=== PATIENT | female | born 1935 | race Caucasian/White ===

== ENCOUNTER 2018-06-20 17:29 | Inpatient (IN) | payer OTHER ==
[~2018-06-20] VITALS: Ht 157.5 cm; Wt 66.8 kg
[~2018-06-20 17:29] MED LIST: ASCO500C9 PO; ASPI-630 PO; CHOL100013 PO; GLUC1TAB32 PO; L.AC1CAP6 PO; LOSA25TA54 PO; MAGN100T6 PO; MEDI7.7O PO; METO-239 PO; MULT1TAB52 PO; OMEG10003 PO; PNV PO; SELE5CAP3 PO; UBID10CA5 PO; [UNRECOGNIZED DRUG - REMARK] PO
[2018-06-20] MEDS ORDERED: IV NORMAL SALINE 1000ML BAG 1,000 ML IV ONE ×3 (17:45→21:00)
[2018-06-20] MEDS ORDERED: ONDANSETRON PF 4 MG/2 ML VIAL. IV ONE (17:45)
[2018-06-20] MEDS ORDERED: FAMOTIDINE 20 MG/2 ML VIAL IVP ONE (17:45)
--- NOTE | 2018-06-20 17:48 | PHYS DOC ---
Past Medical History Past Medical History: Hypertension Additional Past Medical Histor: REPORTS THAT SHE NO LONGER TAKES MEDICATIONS FOR HYPERTENSION. Past Surgical History: Appendectomy, Hysterectomy Alcohol Use: None Drug Use: None Adult General HPI HPI Patient is a 82 year old female with history of hypertension, dementia, who presents today from a longterm, chief complaint of nausea, vomiting, symptoms began this afternoon. Patient denies any abdominal pain. Denies any diarrhea. Poor historian due to dementia. EMS states when they went to get patient family member was concerned her blood pressure was high, blood pressure was around 180s over 90s when they went to pick patient up. Patient denies any symptoms. She appears to have vomited in route to the ED. Review of Systems Review of Systems Constitutional: Denies fever or chills [] Eyes: Denies change in visual acuity, redness, or eye pain [] HENT: Denies nasal congestion or sore throat [] Respiratory: Denies cough or shortness of breath [] Cardiovascular: No additional information not addressed in HPI [] GI: Reports nausea, vomiting. Denies abdominal pain, bloody stools or diarrhea [] : Denies dysuria or hematuria [] Musculoskeletal: Denies back pain or joint pain [] Integument: Denies rash or skin lesions [] Neurologic: Denies headache, focal weakness or sensory changes [] All other systems were reviewed and found to be within normal limits, except as documented in this note. Current Medications Current Medications Current Medications Medications (Trade) Dose Ordered Sig/Drea Start Time Stop Time Status Last Admin Dose Admin Famotidine (Pepcid Vial) 20 mg 1X ONCE 06/20/18 17:45 06/20/18 17:46 DC 06/20/18 18:06 20 MG Info (CONTRAST GIVEN -- Rx MONITORING) 1 each PRN DAILY PRN 06/20/18 18:00 06/22/18 17:59 Iohexol (Omnipaque 300 Mg/ml) 75 ml 1X ONCE 06/20/18 18:00 06/20/18 18:01 DC 06/20/18 19:00 75 ML Ondansetron HCl (Zofran) 4 mg 1X ONCE 06/20/18 17:45 06/20/18 17:46 DC 06/20/18 18:06 4 MG Sodium Chloride 1,000 ml @ 1,000 mls/hr 1X ONCE 06/20/18 17:45 06/20/18 18:44 DC 06/20/18 18:05 1,000 MLS/HR Allergies Allergies Allergies Coded Allergies Type Severity Reaction Last Updated Verified Penicillins Allergy Intermediate RASH 02/28/17 Yes Physical Exam Physical Exam Constitutional: Well developed, well nourished, no acute distress, non-toxic appearance. [] HENT: Normocephalic, atraumatic, bilateral external ears normal, oropharynx mo ist, no oral exudates, nose normal. [] Eyes: PERRLA, EOMI, conjunctiva normal, no discharge. [] Neck: Normal range of motion, no tenderness, supple, no stridor. [] Cardiovascular:Heart rate regular rhythm, no murmur [] Lungs & Thorax: Bilateral breath sounds clear to auscultation [] Abdomen: Bowel sounds normal, soft, no tenderness, no masses, no pulsatile masses. [] Skin: Warm, dry, no erythema, no rash. [] Back: No tenderness, no CVA tenderness. [] Extremities: No tenderness, no cyanosis, no clubbing, ROM intact, no edema. [] Neurologic: Alert and oriented X 3, normal motor function, normal sensory function, no focal deficits noted. Cranial nerves II-XII intact. Psychologic: Affect normal, judgement normal, mood normal. [] Current Patient Data Vital Signs Vital Signs Date Time Temp Pulse Resp B/P (MAP) Pulse Ox O2 Delivery O2 Flow Rate FiO2 06/20/18 17:29 98.4 104 20 207/95 (132) 94 Room Air 98.4 Lab Values Laboratory Tests Test 06/20/18 17:47 06/20/18 18:15 White Blood Count 15.6 x10^3/uL (4.0-11.0) H Red Blood Count 4.81 x10^6/uL (3.50-5.40) Hemoglobin 15.1 g/dL (12.0-15.5) Hematocrit 45.9 % (36.0-47.0) Mean Corpuscular Volume 96 fL (79-100) Mean Corpuscular Hemoglobin 31 pg (25-35) Mean Corpuscular Hemoglobin Concent 33 g/dL (31-37) Red Cell Distribution Width 13.0 % (11.5-14.5) Platelet Count 258 x10^3/uL (140-400) Neutrophils (%) (Auto) 82 % (31-73) H Lymphocytes (%) (Auto) 10 % (24-48) L Monocytes (%) (Auto) 7 % (0-9) Eosinophils (%) (Auto) 1 % (0-3) Basophils (%) (Auto) 0 % (0-3) Neutrophils # (Auto) 12.8 x10^3uL (1.8-7.7) H Lymphocytes # (Auto) 1.5 x10^3/uL (1.0-4.8) Monocytes # (Auto) 1.1 x10^3/uL (0.0-1.1) Eosinophils # (Auto) 0.1 x10^3/uL (0.0-0.7) Basophils # (Auto) 0.0 x10^3/uL (0.0-0.2) Segmented Neutrophils % 62 % (35-66) Band Neutrophils % 15 % (0-9) H Lymphocytes % 11 % (24-48) L Atypical Lymphocytes % (Manual) 2 % (0-0) H Monocytes % 9 % (0-10) Eosinophils % 1 % (0-5) Platelet Estimate Adequate (ADEQUATE) Sodium Level 139 mmol/L (136-145) Potassium Level 3.7 mmol/L (3.5-5.1) Chloride Level 104 mmol/L (98-107) Carbon Dioxide Level 24 mmol/L (21-32) Anion Gap 11 (6-14) Blood Urea Nitrogen 22 mg/dL (7-20) H Creatinine 0.9 mg/dL (0.6-1.0) Estimated GFR (Cockcroft-Gault) 60.2 BUN/Creatinine Ratio 24 (6-20) H Glucose Level 129 mg/dL (70-99) H Calcium Level 10.1 mg/dL (8.5-10.1) Magnesium Level 2.0 mg/dL (1.8-2.4) Total Bilirubin 0.2 mg/dL (0.2-1.0) Aspartate Amino Transferase (AST) 19 U/L (15-37) Alanine Aminotransferase (ALT) 15 U/L (14-59) Alkaline Phosphatase 96 U/L (46-116) Troponin I Quantitative < 0.017 ng/mL (0.000-0.055) DJ-Ceu-L-Type Natriuretic Peptide 1174 pg/mL (0-449) H Total Protein 8.3 g/dL (6.4-8.2) H Albumin 4.2 g/dL (3.4-5.0) Albumin/Globulin Ratio 1.0 (1.0-1.7) Lipase 457 U/L (73-393) H Urine Collection Type U cath Urine Color Yellow Urine Clarity Clear Urine pH 5.5 Urine Specific [place] 1.025 Urine Protein 30 mg/dL (NEG-TRACE) Urine Glucose (UA) Negative mg/dL (NEG) Urine Ketones (Stick) Negative mg/dL (NEG) Urine Blood Negative (NEG) Urine Nitrite Positive (NEG) Urine Bilirubin Negative (NEG) Urine Urobilinogen Dipstick 0.2 mg/dL (0.2 mg/dL) Urine Leukocyte Esterase Small (NEG) Urine RBC 0 /HPF (0-2) Urine WBC 20-40 /HPF (0-4) Urine Squamous Epithelial Cells Few /LPF Urine Bacteria Many /HPF (0-FEW) Urine Hyaline Casts Moderate /HPF Urine Mucus Marked /LPF Laboratory Tests 06/20/18 17:47 Laboratory Tests 06/20/18 17:47 EKG EKG EKG interpreted by Dr. Young sinus tachycardia HR 101 no STEMI[] Radiology/Procedures Radiology/Procedures [] Course & Med Decision Making Course & Med Decision Making Pertinent Labs and Imaging studies reviewed. (See chart for details) This is a 82-year-old female patient with history of dementia presenting with nausea and vomiting, symptoms began today. She was also noted to be hypertensive when EMS went to pick her from longterm blood pressures were in the 180s over 90s. Patient denies any symptoms. EKG-shows tachycardia with HR of 101 CBC with a WBC of 15.6 and a left shift, CMP with glucose of 129, anion gap is normal, BUN is 22. Lipase 457. Patient has no abdominal pain though she has dementia and had to elicit concerns regarding abdominal pain Urine noted for UTI Awaiting CT of the abdomen and pelvic Patient vomited in the Ed several times. Nausea medicine and IV fluids were continued. Consulted with Dr. Hebert who accepted patient for admission Gi consult placed Started on Rocephin for UTI Dragon Disclaimer Dragon Disclaimer This electronic medical record was generated, in whole or in part, using a voice recognition dictation system. Departure Departure Impression: Primary Impression: Acute pancreatitis Additional Impressions: Hypertension UTI (urinary tract infection) Intractable nausea and vomiting Disposition: ADMITTED INPATIENT Condition: STABLE Referrals: UNKNOWN PCP NAME (PCP) Problem Qualifiers Primary Impression: Acute pancreatitis Pancreatitis type: unspecified pancreatitis type Acute pancreatitis complication: unspecified Qualified Codes: K85.90 - Acute pancreatitis without necrosis or infection, unspecified Additional Impressions: Hypertension Hypertension type: unspecified Qualified Codes: I10 - Essential (primary) hypertension UTI (urinary tract infection) Urinary tract infection type: site unspecified Hematuria presence: without hematuria Qualified Codes: N39.0 - Urinary tract infection, site not specified Intractable nausea and vomiting Vomiting type: unspecified Qualified Codes: R11.2 - Nausea with vomiting, unspecified JANNETTE CONTRERAS [employer] INSTRUCTOR Jun 20, 2018 17:48
[2018-06-20 17:54] LABS: BASO % 0 % (0-3); EOS # 0.1 x10^3/uL (0.0-0.7); EOS % 1 % (0-3); HEMATOCRIT 45.9 % (36.0-47.0); HEMOGLOBIN 15.1 g/dL (12.0-15.5); LYMPH # 1.5 x10^3/uL (1.0-4.8); LYMPH % 10 % (24-48); MEAN CORPUSCULAR HEMOGLOBIN 31 pg (25-35); MEAN CORPUSCULAR HGB CONC 33 g/dL (31-37); MEAN CORPUSCULAR VOLUME 96 fL (79-100); MONO # 1.1 x10^3/uL (0.0-1.1); MONO % 7 % (0-9); NEUT # 12.8 x10^3uL (1.8-7.7); NEUT % 82 % (31-73); PLATELET COUNT 258 x10^3/uL (140-400); RED BLOOD COUNT 4.81 x10^6/uL (3.50-5.40); WHITE BLOOD COUNT 15.6 x10^3/uL (4.0-11.0)
[2018-06-20] MEDS ORDERED: CONTRAST GIVEN. MC PRN (18:00)
[2018-06-20] MEDS ORDERED: IOHEXOL 300 MG/ML 100ML VIAL. IV ONE (18:00)
[2018-06-20 18:03] LABS: CALCIUM 10.1 mg/dL (8.5-10.1); CREATININE 0.9 mg/dL (0.6-1.0); GFR 60.2; POTASSIUM 3.7 mmol/L (3.5-5.1)
[2018-06-20 18:09] LABS: ALBUMIN 4.2 g/dL (3.4-5.0); TOTAL BILIRUBIN 0.2 mg/dL (0.2-1.0); TOTAL PROTEIN 8.3 g/dL (6.4-8.2)
[2018-06-20 18:25] LABS: BILIRUBIN,URINE NEGATIVE (NEG); CLARITY,URINE CLEAR; COLOR,URINE YELLOW; NITRITE,URINE POSITIVE (NEG); PH,URINE 5.5; PROTEIN,URINE 30 mg/dL (NEG-TRACE); UROBILINOGEN,URINE 0.2 mg/dL (0.2 mg/dL)
[2018-06-20 18:32] LABS: BACTERIA,URINE MANY /HPF (0-FEW); HYALINE CASTS, URINE MODERATE /HPF; RBC,URINE 0 /HPF (0-2); SQUAMOUS EPITHELIAL CELL,UR FEW /LPF; WBC,URINE 20-40 /HPF (0-4)
[2018-06-20 18:42] LABS: % ATYL 2 % (0-0); % BANDS 15 % (0-9); % EOS 1 % (0-5); % LYMPHS 11 % (24-48); % MONOS 9 % (0-10); % SEGS 62 % (35-66); PLT ESTIMATE ADEQUATE (ADEQUATE)
[2018-06-20] MEDS ORDERED: ONDANSETRON PF 4 MG/2 ML VIAL. IV PRN (19:30)
[2018-06-20] MEDS ORDERED: fentaNYL PF VIAL 100 MCG/2 ML VIAL IV PRN (19:30)
--- NOTE | 2018-06-20 19:35 | RAD ---
CT SCAN OF THE ABDOMEN AND PELVIS WITH IV CONTRAST. History: Nausea and vomiting Comparison:None. Procedure: Contiguous axial images of the abdomen and pelvis were performed after the administration of 70 cc of Omni 300 IV contrast and without oral contrast. CT Abdomen with contrast: Findings: There is beam Spicer artifact from prior fusion laminectomy at L4-L5. There is a small hiatal hernia. The colon is partially collapsed. There is multiple mildly prominent fluid-filled loops of small bowel. There is no transition zone. Liver: There is a 7 mm hypoattenuating lesion in the right lobe of the liver is too small to characterize. There is a 1.7 cm x 3.1 cm hypoattenuating lesion in the liver which has intermediate density this 2 additional smaller lesions which are also too small to characterize. Spleen: Unremarkable Pancreas: The pancreatic duct is mildly dilated. This is especially seen in the pancreatic head. Adrenal Glands: Unremarkable Kidneys: Small cyst on the right There is no mass or lymphadenopathy. There is no free air. There is no free fluid. Impression: No acute findings. End Impression CT Pelvis with Contrast: Findings: The urinary bladder appears normal. There is no free fluid. There is no lymphadenopathy. The appendix is not seen. There is moderate sigmoid diverticulosis without surrounding inflammation. Impression: 1. Numerous hypoattenuating lesions in the liver the majority of which are too small to characterize. 2. Dilated pancreatic duct. This is of uncertain chronicity. Recommend follow-up ultrasound of the liver and pancreas. PQRS Compliance Statement: One or more of the following individualized dose reduction techniques were utilized for this examination: 1. Automated exposure control 2. Adjustment of the mA and/or kV according to patient size 3. Use of iterative reconstruction technique Electronically signed by: Faisal Lance III, MD (06/20/2018 7:32 PM) [facility]
[2018-06-20] MEDS ORDERED: cefTRIAXone IV Push 1 GM VIAL. IVP ONE (20:00)
[2018-06-20 20:30] VITALS: BP 152/79
[2018-06-20] MEDS ORDERED: UBIDECARENONE 10 MG PO SCH (21:00)
[2018-06-20] MEDS ORDERED: [UNRECOGNIZED DRUG - OTHER] PO SCH (21:00)
[2018-06-20] MEDS ORDERED: SELEGILINE HCL 5 MG PO SCH (21:00)
[2018-06-20] MEDS ORDERED: METOPROLOL SUCC 24HR ER 25 MG TAB.ER.24H. PO SCH (21:30)
--- NOTE | 2018-06-20 21:51 | PDOC1 ---
History and Physical Date of Admission Date of Admission DATE: 06/20/18 TIME: 21:47 Identification/Chief Complaint Chief Complaint nausea and vomiting Source Source: Caregiver, Chart review History of Present Illness History of Present Illness Ms. Liu, is a 82 year old female admit with nausea, vomiting, symptoms began this afternoon. Patient denies any abdominal pain. Denies any diarrhea. Poor historian due to dementia. EMS states when they went to get patient family member was concerned her blood pressure was high, blood pressure was around 180s over 90s when they went to pick patient up. Patient denies any symptoms. She appears to have vomited in route to the ED. Past Medical History Past Medical History history of hypertension, dementia, - had been on hospice before in a retirement, Cardiovascular: HTN Past Surgical History Past Surgical History: Appendectomy, Hysterectomy Family History Family History: Other Social History Smoke: No ALCOHOL: none Drugs: None Current Problem List Problem List Problems Medical Problems: (1) Acute pancreatitis Status: Acute (2) Hypertension Status: Acute Current Medications Current Medications Current Medications Famotidine (Pepcid Vial) 20 mg 1X ONCE IVP Last administered on 06/20/18at 18:06; Start 06/20/18 at 17:45; Stop 06/20/18 at 17:46; Status DC Ondansetron HCl (Zofran) 4 mg 1X ONCE IV Last administered on 06/20/18at 18:06; Start 06/20/18 at 17:45; Stop 06/20/18 at 17:46; Status DC Sodium Chloride 1,000 ml @ 1,000 mls/hr 1X ONCE IV Last administered on 06/20/18at 18:05; Start 06/20/18 at 17:45; Stop 06/20/18 at 18:44; Status DC Iohexol (Omnipaque 300 Mg/ml) 75 ml 1X ONCE IV Last administered on 06/20/18at 19:00; Start 06/20/18 at 18:00; Stop 06/20/18 at 18:01; Status DC Info (CONTRAST GIVEN -- Rx MONITORING) 1 each PRN DAILY PRN MC SEE COMMENTS; Start 06/20/18 at 18:00; Stop 06/22/18 at 17:59 Ondansetron HCl (Zofran) 4 mg PRN Q8HRS PRN IV NAUSEA/VOMITING; Start 06/20/18 at 19:30; Stop 06/21/18 at 19:29 Fentanyl Citrate (Fentanyl 2ml Vial) 50 mcg PRN Q1HR PRN IV PAIN; Start 06/20/18 at 19:30; Stop 06/21/18 at 19:29 Sodium Chloride 1,000 ml @ 125 mls/hr 1X ONCE IV Last administered on 06/20/18at 19:40; Start 06/20/18 at 19:30; Stop 06/21/18 at 03:29 Ceftriaxone Sodium (Rocephin) 1 gm 1X ONCE IVP Last administered on 06/20/18at 19:38; Start 06/20/18 at 20:00; Stop 06/20/18 at 20:01; Status DC Ceftriaxone Sodium (Rocephin) 1 gm Q24H IVP ; Start 06/21/18 at 20:00 Sodium Chloride 1,000 ml @ 100 mls/hr 1X ONCE IV ; Start 06/20/18 at 21:00; Stop 06/21/18 at 06:59 Aspirin (Children'S Aspirin) 81 mg DAILY PO ; Start 06/21/18 at 09:00 Losartan Potassium (Cozaar) 25 mg DAILY PO ; Start 06/21/18 at 09:00 Metoprolol Succinate (Toprol Xl) 25 mg DAILYWSUP PO ; Start 06/20/18 at 21:30 Ascorbic Acid (Vitamin C) 500 mg DAILY PO ; Start 06/21/18 at 09:00 Non-Formulary Medication (Selegiline Hcl ) 5 mg BID PO ; Start 06/20/18 at 21:00; Status UNV Non-Formulary Medication (Ubidecarenone (Co Q-10)) 10 mg BID PO ; Start 06/20/18 at 21:00; Status UNV Non-Formulary Medication ([misce] ) 400 mg HS PO ; Start 06/20/18 at 21:00; Status UNV Active Scripts Active Reported Vitamin D (Cholecalciferol (Vitamin D3)) 1,000 Unit Capsule 5,000 Unit PO DAILY Vitamin C (Ascorbic Acid) 500 Mg Capsule 500 Mg PO DAILY Super [place]-3 ([place]-3 Fatty Acids) 1,000 Mg Capsule 2,000 Mg PO DAILYWSUP Selegiline Hcl 5 Mg Capsule 5 Mg PO BID Probiotic (L.acidoph & Paracasei,B.lactis) 1 Each Capsule 1 Each PO DAILY Multivitamins (Multivitamin) 1 Each Tablet 1 Tab PO DAILY Metoprolol Succinate ( Xl ) (Metoprolol Succinate) 25 Mg Tab.er.24h 1 Tab PO DAILYWSUP Levomefolate Dha Capsule (Pnv#79/Iron/Fa/Lmfolate Ca/Dha) 1 Each Capsule 1 Each PO DAILY Losartan Potassium (Losartan Potassium) 25 Mg Tablet 100 Mg PO DAILY Aspirin 81 Mg Tab.chew 1 Tab PO DAILY Allergies Allergies: Coded Allergies: Penicillins (Verified Allergy, Intermediate, RASH, 02/28/17) ROS Review of System unable, dementia, had looked well before today per family Physical Exam General: Alert, Cooperative, No acute distress HEENT: Atraumatic, PERRLA, Mucous membr. moist/pink Lungs: Normal air movement Heart: no murmurs Abdomen: Normal bowel sounds, Soft Extremities: No edema, Normal pulses Neuro: Normal tone, Sensation intact Psych/Mental Status: Other (withdrawn, not oriented, poor recall) Vitals Vitals Vital Signs Date Time Temp Pulse Resp B/P (MAP) Pulse Ox O2 Delivery O2 Flow Rate FiO2 06/20/18 20:30 98.4 109 21 152/79 (103) 90 Room Air 98.4 Labs Labs Laboratory Tests Test 06/20/18 17:47 06/20/18 18:15 White Blood Count 15.6 x10^3/uL (4.0-11.0) Red Blood Count 4.81 x10^6/uL (3.50-5.40) Hemoglobin 15.1 g/dL (12.0-15.5) Hematocrit 45.9 % (36.0-47.0) Mean Corpuscular Volume 96 fL (79-100) Mean Corpuscular Hemoglobin 31 pg (25-35) Mean Corpuscular Hemoglobin Concent 33 g/dL (31-37) Red Cell Distribution Width 13.0 % (11.5-14.5) Platelet Count 258 x10^3/uL (140-400) Neutrophils (%) (Auto) 82 % (31-73) Lymphocytes (%) (Auto) 10 % (24-48) Monocytes (%) (Auto) 7 % (0-9) Eosinophils (%) (Auto) 1 % (0-3) Basophils (%) (Auto) 0 % (0-3) Neutrophils # (Auto) 12.8 x10^3uL (1.8-7.7) Lymphocytes # (Auto) 1.5 x10^3/uL (1.0-4.8) Monocytes # (Auto) 1.1 x10^3/uL (0.0-1.1) Eosinophils # (Auto) 0.1 x10^3/uL (0.0-0.7) Basophils # (Auto) 0.0 x10^3/uL (0.0-0.2) Segmented Neutrophils % 62 % (35-66) Band Neutrophils % 15 % (0-9) Lymphocytes % 11 % (24-48) Atypical Lymphocytes % (Manual) 2 % (0-0) Monocytes % 9 % (0-10) Eosinophils % 1 % (0-5) Platelet Estimate Adequate (ADEQUATE) Sodium Level 139 mmol/L (136-145) Potassium Level 3.7 mmol/L (3.5-5.1) Chloride Level 104 mmol/L (98-107) Carbon Dioxide Level 24 mmol/L (21-32) Anion Gap 11 (6-14) Blood Urea Nitrogen 22 mg/dL (7-20) Creatinine 0.9 mg/dL (0.6-1.0) Estimated GFR (Cockcroft-Gault) 60.2 BUN/Creatinine Ratio 24 (6-20) Glucose Level 129 mg/dL (70-99) Calcium Level 10.1 mg/dL (8.5-10.1) Magnesium Level 2.0 mg/dL (1.8-2.4) Total Bilirubin 0.2 mg/dL (0.2-1.0) Aspartate Amino Transf (AST/SGOT) 19 U/L (15-37) Alanine Aminotransferase (ALT/SGPT) 15 U/L (14-59) Alkaline Phosphatase 96 U/L (46-116) Troponin I Quantitative < 0.017 ng/mL (0.000-0.055) QK-Gey-T-Type Natriuretic Peptide 1174 pg/mL (0-449) Total Protein 8.3 g/dL (6.4-8.2) Albumin 4.2 g/dL (3.4-5.0) Albumin/Globulin Ratio 1.0 (1.0-1.7) Lipase 457 U/L (73-393) Urine Collection Type U cath Urine Color Yellow Urine Clarity Clear Urine pH 5.5 Urine Specific [place] 1.025 Urine Protein 30 mg/dL (NEG-TRACE) Urine Glucose (UA) Negative mg/dL (NEG) Urine Ketones (Stick) Negative mg/dL (NEG) Urine Blood Negative (NEG) Urine Nitrite Positive (NEG) Urine Bilirubin Negative (NEG) Urine Urobilinogen Dipstick 0.2 mg/dL (0.2 mg/dL) Urine Leukocyte Esterase Small (NEG) Urine RBC 0 /HPF (0-2) Urine WBC 20-40 /HPF (0-4) Urine Squamous Epithelial Cells Few /LPF Urine Bacteria Many /HPF (0-FEW) Urine Hyaline Casts Moderate /HPF Urine Mucus Marked /LPF Laboratory Tests Test 06/20/18 17:47 06/20/18 18:15 White Blood Count 15.6 x10^3/uL (4.0-11.0) Red Blood Count 4.81 x10^6/uL (3.50-5.40) Hemoglobin 15.1 g/dL (12.0-15.5) Hematocrit 45.9 % (36.0-47.0) Mean Corpuscular Volume 96 fL (79-100) Mean Corpuscular Hemoglobin 31 pg (25-35) Mean Corpuscular Hemoglobin Concent 33 g/dL (31-37) Red Cell Distribution Width 13.0 % (11.5-14.5) Platelet Count 258 x10^3/uL (140-400) Neutrophils (%) (Auto) 82 % (31-73) Lymphocytes (%) (Auto) 10 % (24-48) Monocytes (%) (Auto) 7 % (0-9) Eosinophils (%) (Auto) 1 % (0-3) Basophils (%) (Auto) 0 % (0-3) Neutrophils # (Auto) 12.8 x10^3uL (1.8-7.7) Lymphocytes # (Auto) 1.5 x10^3/uL (1.0-4.8) Monocytes # (Auto) 1.1 x10^3/uL (0.0-1.1) Eosinophils # (Auto) 0.1 x10^3/uL (0.0-0.7) Basophils # (Auto) 0.0 x10^3/uL (0.0-0.2) Segmented Neutrophils % 62 % (35-66) Band Neutrophils % 15 % (0-9) Lymphocytes % 11 % (24-48) Atypical Lymphocytes % (Manual) 2 % (0-0) Monocytes % 9 % (0-10) Eosinophils % 1 % (0-5) Platelet Estimate Adequate (ADEQUATE) Sodium Level 139 mmol/L (136-145) Potassium Level 3.7 mmol/L (3.5-5.1) Chloride Level 104 mmol/L (98-107) Carbon Dioxide Level 24 mmol/L (21-32) Anion Gap 11 (6-14) Blood Urea Nitrogen 22 mg/dL (7-20) Creatinine 0.9 mg/dL (0.6-1.0) Estimated GFR (Cockcroft-Gault) 60.2 BUN/Creatinine Ratio 24 (6-20) Glucose Level 129 mg/dL (70-99) Calcium Level 10.1 mg/dL (8.5-10.1) Magnesium Level 2.0 mg/dL (1.8-2.4) Total Bilirubin 0.2 mg/dL (0.2-1.0) Aspartate Amino Transf (AST/SGOT) 19 U/L (15-37) Alanine Aminotransferase (ALT/SGPT) 15 U/L (14-59) Alkaline Phosphatase 96 U/L (46-116) Troponin I Quantitative < 0.017 ng/mL (0.000-0.055) KB-Bnn-B-Type Natriuretic Peptide 1174 pg/mL (0-449) Total Protein 8.3 g/dL (6.4-8.2) Albumin 4.2 g/dL (3.4-5.0) Albumin/Globulin Ratio 1.0 (1.0-1.7) Lipase 457 U/L (73-393) Urine Collection Type U cath Urine Color Yellow Urine Clarity Clear Urine pH 5.5 Urine Specific [place] 1.025 Urine Protein 30 mg/dL (NEG-TRACE) Urine Glucose (UA) Negative mg/dL (NEG) Urine Ketones (Stick) Negative mg/dL (NEG) Urine Blood Negative (NEG) Urine Nitrite Positive (NEG) Urine Bilirubin Negative (NEG) Urine Urobilinogen Dipstick 0.2 mg/dL (0.2 mg/dL) Urine Leukocyte Esterase Small (NEG) Urine RBC 0 /HPF (0-2) Urine WBC 20-40 /HPF (0-4) Urine Squamous Epithelial Cells Few /LPF Urine Bacteria Many /HPF (0-FEW) Urine Hyaline Casts Moderate /HPF Urine Mucus Marked /LPF VTE Prophylaxis Ordered VTE Prophylaxis Devices: No VTE Pharmacological Prophylaxi: Yes Assessment/Plan Assessment/Plan uti sepsis chronic encephalopathy - dementia accelerated hypertensino nausea and vomiting, mild pancreatitis, NPO tonight, advance diet in AM weakness and debility admit , IV abx RIGOBERTO ARCE MD Jun 20, 2018 21:51
[2018-06-20] MEDS ORDERED: BISA10SU2 RC (22:09)
[2018-06-20] MEDS ORDERED: ACET500T33 PO (22:09)
[2018-06-20] MEDS ORDERED: MENT118G TP (22:09)
[2018-06-20] MEDS ORDERED: BUSP5TAB PO (22:09)
[2018-06-20] MEDS ORDERED: LOPE2CAP88 PO (22:09)
[2018-06-20] MEDS ORDERED: DOCU-109 PO (22:09)
[2018-06-20] MEDS ORDERED: TRAZ-118 PO (22:09)
[2018-06-20] MEDS ORDERED: CALC300T5 PO (22:09)
[2018-06-20] MEDS ORDERED: METO50TA6 PO (22:09)
[2018-06-20] MEDS ORDERED: CALCIUM CARBONATE 500 MG TAB.CHEW PO PRN (23:15)
[2018-06-20] MEDS ORDERED: LOPERAMIDE 2 MG CAPSULE PO PRN (23:15)
[2018-06-20] MEDS ORDERED: ACETAMINOPHEN 500 MG TABLET PO PRN (23:15)
[2018-06-20] MEDS ORDERED: DOCUSATE SODIUM 100 MG CAPSULE. PO PRN (23:15)
[2018-06-20] MEDS ORDERED: BISACODYL 10 MG SUPP.RECT. PR PRN (23:15)
[2018-06-20 23:38] VITALS: BP 147/60
[2018-06-20] MEDS: ENOXAPARIN 40 MG/0.4 ML SYRINGE. SQ SCH (23:43)
[2018-06-20] MEDS: METHYL SALICYLATE/MENTHOL TOPICAL OINTMENT 29GM TUBE. TP SCH (23:43)
[2018-06-20] MEDS: traZODone 50 MG TABLET. PO SCH (23:43)
[2018-06-20] MEDS: busPIRone 5 MG TABLET. PO SCH (23:43)
[2018-06-20] MEDS: METOPROLOL TART IMMED RELEASE 50 MG TABLET. PO SCH (23:43)
[2018-06-21 03:15] VITALS: BP 180/87
[2018-06-21 04:40] LABS: BASO % 0 % (0-3); EOS # 0.1 x10^3/uL (0.0-0.7); EOS % 1 % (0-3); HEMOGLOBIN 12.1 g/dL (12.0-15.5); LYMPH # 1.9 x10^3/uL (1.0-4.8); LYMPH % 20 % (24-48); MEAN CORPUSCULAR HEMOGLOBIN 32 pg (25-35); MEAN CORPUSCULAR HGB CONC 33 g/dL (31-37); MEAN CORPUSCULAR VOLUME 97 fL (79-100); MONO # 0.6 x10^3/uL (0.0-1.1); MONO % 6 % (0-9); NEUT # 6.6 x10^3uL (1.8-7.7); NEUT % 72 % (31-73); PLATELET COUNT 215 x10^3/uL (140-400); RED BLOOD COUNT 3.83 x10^6/uL (3.50-5.40); RED CELL DISTRIBUTION WIDTH 12.8 % (11.5-14.5); WHITE BLOOD COUNT 9.2 x10^3/uL (4.0-11.0)
[2018-06-21 04:57] LABS: ALBUMIN 3.1 g/dL (3.4-5.0); CALCIUM 8.8 mg/dL (8.5-10.1); CREATININE 0.9 mg/dL (0.6-1.0); GFR 60.2; POTASSIUM 3.8 mmol/L (3.5-5.1); TOTAL BILIRUBIN 0.4 mg/dL (0.2-1.0); TOTAL PROTEIN 6.2 g/dL (6.4-8.2)
[2018-06-21] MEDS: busPIRone 5 MG TABLET. PO SCH ×3 (06:05→20:26)
[2018-06-21 07:00] VITALS: BP 155/69
--- NOTE | 2018-06-21 08:06 | RAD ---
PORTABLE CHEST 1V History: Hypertension, shortness of breath, nausea and vomiting Comparison: February 28, 2017 Findings: Single view of the chest is submitted. There is mild interstitial opacity bilaterally most notable of the left lung base, questionably slightly increased left lung base. There is no lobar consolidation, pleural fluid, pneumothorax. Heart size is stable. There is a tortuous thoracic aorta. Impression: 1. There is no lobar consolidation. There is mild interstitial opacity slightly increased left lung base, could be due to mild interstitial edema or infiltrate. Electronically signed by: Alfie Hagen MD (06/21/2018 8:03 AM) [facility] [place]
[2018-06-21] MEDS ORDERED: ASCORBIC ACID 500 MG TABLET PO SCH (09:00)
[2018-06-21] MEDS ORDERED: LOSARTAN POTASSIUM 25 MG TABLET. PO SCH (09:00)
[2018-06-21] MEDS: ASPIRIN CHEWABLE 81 MG TABLET. PO SCH (09:46)
[2018-06-21] MEDS: METOPROLOL TART IMMED RELEASE 50 MG TABLET. PO SCH ×2 (09:46→20:27)
[2018-06-21] MEDS: LACTOBACILLUS RHAMNOSUS GG 1 CAPSULE. PO SCH ×2 (09:46→20:27)
[2018-06-21] MEDS: LOSARTAN POTASSIUM 50 MG TABLET. PO SCH (09:47)
[2018-06-21] MEDS: METHYL SALICYLATE/MENTHOL TOPICAL OINTMENT 29GM TUBE. TP SCH ×4 (09:47→20:28)
--- NOTE | 2018-06-21 10:50 | PDOC ---
PROGRESS NOTES History of Present Illness History of Present Illness VTE Prophylaxis Ordered VTE Prophylaxis Devices: No VTE Pharmacological Prophylaxi: Yes Assessment/Plan Assessment/Plan uti sepsis chronic encephalopathy - dementia accelerated hypertension mild interstitial opacity slightly increased left lung base, could be due to mild interstitial edema or infiltrate. nausea and vomiting, IMPROVED mild pancreatitis, advance diet weakness and debility admit , IV abx, rocephin 1 gm q 24 hrs iv TRY SOUP TODAY, ADAT Vitals Vitals Vital Signs Date Time Temp Pulse Resp B/P (MAP) Pulse Ox O2 Delivery O2 Flow Rate FiO2 06/21/18 09:47 71 155/69 06/21/18 08:00 Room Air 06/21/18 07:00 97.6 18 94 97.6 Physical Exam Physical Exam Physical Exam General: Alert, Cooperative, No acute distress HEENT: Atraumatic, PERRLA, Mucous membranes. moist/pink Lungs: Normal air movement Heart: no murmurs Abdomen: Normal bowel sounds, Soft Extremities: No edema, Normal pulses Neuro: Normal tone, Sensation intact Psych/Mental Status: (withdrawn, not oriented, poor recall) General: Alert, Cooperative, No acute distress, mild distress Heart: Regular rate, No murmurs Lungs: Clear, Crackles Abdomen: Normal bowel sounds, Soft, No tenderness Extremities: No edema, Normal pulses Labs LABS STATUS: ADM IN ORD. PHYSICIAN: JANNETTE CONTRERAS APRN REASON: HTN PROCEDURE: PORTABLE CHEST 1V PORTABLE CHEST 1V History: Hypertension, shortness of breath, nausea and vomiting Comparison: February 28, 2017 Findings: Single view of the chest is submitted. There is mild interstitial opacity bilaterally most notable of the left lung base, questionably slightly increased left lung base. There is no lobar consolidation, pleural fluid, pneumothorax. Heart size is stable. There is a tortuous thoracic aorta. Impression: 1. There is no lobar consolidation. There is mild interstitial opacity slightly increased left lung base, could be due to mild interstitial edema or infiltrate. Electronically signed by: Alfie Hagen MD (06/21/2018 8:03 AM) [facility] Laboratory Tests Test 06/20/18 17:47 06/20/18 18:15 06/21/18 00:05 06/21/18 03:55 White Blood Count 15.6 x10^3/uL (4.0-11.0) 9.2 x10^3/uL (4.0-11.0) Red Blood Count 4.81 x10^6/uL (3.50-5.40) 3.83 x10^6/uL (3.50-5.40) Hemoglobin 15.1 g/dL (12.0-15.5) 12.1 g/dL (12.0-15.5) Hematocrit 45.9 % (36.0-47.0) 37.0 % (36.0-47.0) Mean Corpuscular Volume 96 fL (79-100) 97 fL (79-100) Mean Corpuscular Hemoglobin 31 pg (25-35) 32 pg (25-35) Mean Corpuscular Hemoglobin Concent 33 g/dL (31-37) 33 g/dL (31-37) Red Cell Distribution Width 13.0 % (11.5-14.5) 12.8 % (11.5-14.5) Platelet Count 258 x10^3/uL (140-400) 215 x10^3/uL (140-400) Neutrophils (%) (Auto) 82 % (31-73) 72 % (31-73) Lymphocytes (%) (Auto) 10 % (24-48) 20 % (24-48) Monocytes (%) (Auto) 7 % (0-9) 6 % (0-9) Eosinophils (%) (Auto) 1 % (0-3) 1 % (0-3) Basophils (%) (Auto) 0 % (0-3) 0 % (0-3) Neutrophils # (Auto) 12.8 x10^3uL (1.8-7.7) 6.6 x10^3uL (1.8-7.7) Lymphocytes # (Auto) 1.5 x10^3/uL (1.0-4.8) 1.9 x10^3/uL (1.0-4.8) Monocytes # (Auto) 1.1 x10^3/uL (0.0-1.1) 0.6 x10^3/uL (0.0-1.1) Eosinophils # (Auto) 0.1 x10^3/uL (0.0-0.7) 0.1 x10^3/uL (0.0-0.7) Basophils # (Auto) 0.0 x10^3/uL (0.0-0.2) 0.0 x10^3/uL (0.0-0.2) Segmented Neutrophils % 62 % (35-66) Band Neutrophils % 15 % (0-9) Lymphocytes % 11 % (24-48) Atypical Lymphocytes % (Manual) 2 % (0-0) Monocytes % 9 % (0-10) Eosinophils % 1 % (0-5) Platelet Estimate Adequate (ADEQUATE) Sodium Level 139 mmol/L (136-145) 143 mmol/L (136-145) Potassium Level 3.7 mmol/L (3.5-5.1) 3.8 mmol/L (3.5-5.1) Chloride Level 104 mmol/L (98-107) 108 mmol/L (98-107) Carbon Dioxide Level 24 mmol/L (21-32) 26 mmol/L (21-32) Anion Gap 11 (6-14) 9 (6-14) Blood Urea Nitrogen 22 mg/dL (7-20) 17 mg/dL (7-20) Creatinine 0.9 mg/dL (0.6-1.0) 0.9 mg/dL (0.6-1.0) Estimated GFR (Cockcroft-Gault) 60.2 60.2 BUN/Creatinine Ratio 24 (6-20) 19 (6-20) Glucose Level 129 mg/dL (70-99) 112 mg/dL (70-99) Calcium Level 10.1 mg/dL (8.5-10.1) 8.8 mg/dL (8.5-10.1) Magnesium Level 2.0 mg/dL (1.8-2.4) Total Bilirubin 0.2 mg/dL (0.2-1.0) 0.4 mg/dL (0.2-1.0) Aspartate Amino Transf (AST/SGOT) 19 U/L (15-37) 15 U/L (15-37) Alanine Aminotransferase (ALT/SGPT) 15 U/L (14-59) 11 U/L (14-59) Alkaline Phosphatase 96 U/L (46-116) 67 U/L (46-116) Troponin I Quantitative < 0.017 ng/mL (0.000-0.055) ZM-Ogu-O-Type Natriuretic Peptide 1174 pg/mL (0-449) Total Protein 8.3 g/dL (6.4-8.2) 6.2 g/dL (6.4-8.2) Albumin 4.2 g/dL (3.4-5.0) 3.1 g/dL (3.4-5.0) Albumin/Globulin Ratio 1.0 (1.0-1.7) 1.0 (1.0-1.7) Lipase 457 U/L (73-393) Urine Collection Type U cath Urine Color Yellow Urine Clarity Clear Urine pH 5.5 Urine Specific [place] 1.025 Urine Protein 30 mg/dL (NEG-TRACE) Urine Glucose (UA) Negative mg/dL (NEG) Urine Ketones (Stick) Negative mg/dL (NEG) Urine Blood Negative (NEG) Urine Nitrite Positive (NEG) Urine Bilirubin Negative (NEG) Urine Urobilinogen Dipstick 0.2 mg/dL (0.2 mg/dL) Urine Leukocyte Esterase Small (NEG) Urine RBC 0 /HPF (0-2) Urine WBC 20-40 /HPF (0-4) Urine Squamous Epithelial Cells Few /LPF Urine Bacteria Many /HPF (0-FEW) Urine Hyaline Casts Moderate /HPF Urine Mucus Marked /LPF Lactic Acid Level 2.0 mmol/L (0.4-2.0) Assessment and Plan Assessmemt and Plan Problems Medical Problems: (1) Acute pancreatitis Status: Acute (2) Hypertension Status: Acute Comment Review of Relevant I have reviewed the following items judson (where applicable) has been applied. Labs Laboratory Tests Test 06/20/18 17:47 06/20/18 18:15 06/21/18 00:05 06/21/18 03:55 White Blood Count 15.6 x10^3/uL (4.0-11.0) 9.2 x10^3/uL (4.0-11.0) Red Blood Count 4.81 x10^6/uL (3.50-5.40) 3.83 x10^6/uL (3.50-5.40) Hemoglobin 15.1 g/dL (12.0-15.5) 12.1 g/dL (12.0-15.5) Hematocrit 45.9 % (36.0-47.0) 37.0 % (36.0-47.0) Mean Corpuscular Volume 96 fL (79-100) 97 fL (79-100) Mean Corpuscular Hemoglobin 31 pg (25-35) 32 pg (25-35) Mean Corpuscular Hemoglobin Concent 33 g/dL (31-37) 33 g/dL (31-37) Red Cell Distribution Width 13.0 % (11.5-14.5) 12.8 % (11.5-14.5) Platelet Count 258 x10^3/uL (140-400) 215 x10^3/uL (140-400) Neutrophils (%) (Auto) 82 % (31-73) 72 % (31-73) Lymphocytes (%) (Auto) 10 % (24-48) 20 % (24-48) Monocytes (%) (Auto) 7 % (0-9) 6 % (0-9) Eosinophils (%) (Auto) 1 % (0-3) 1 % (0-3) Basophils (%) (Auto) 0 % (0-3) 0 % (0-3) Neutrophils # (Auto) 12.8 x10^3uL (1.8-7.7) 6.6 x10^3uL (1.8-7.7) Lymphocytes # (Auto) 1.5 x10^3/uL (1.0-4.8) 1.9 x10^3/uL (1.0-4.8) Monocytes # (Auto) 1.1 x10^3/uL (0.0-1.1) 0.6 x10^3/uL (0.0-1.1) Eosinophils # (Auto) 0.1 x10^3/uL (0.0-0.7) 0.1 x10^3/uL (0.0-0.7) Basophils # (Auto) 0.0 x10^3/uL (0.0-0.2) 0.0 x10^3/uL (0.0-0.2) Segmented Neutrophils % 62 % (35-66) Band Neutrophils % 15 % (0-9) Lymphocytes % 11 % (24-48) Atypical Lymphocytes % (Manual) 2 % (0-0) Monocytes % 9 % (0-10) Eosinophils % 1 % (0-5) Platelet Estimate Adequate (ADEQUATE) Sodium Level 139 mmol/L (136-145) 143 mmol/L (136-145) Potassium Level 3.7 mmol/L (3.5-5.1) 3.8 mmol/L (3.5-5.1) Chloride Level 104 mmol/L (98-107) 108 mmol/L (98-107) Carbon Dioxide Level 24 mmol/L (21-32) 26 mmol/L (21-32) Anion Gap 11 (6-14) 9 (6-14) Blood Urea Nitrogen 22 mg/dL (7-20) 17 mg/dL (7-20) Creatinine 0.9 mg/dL (0.6-1.0) 0.9 mg/dL (0.6-1.0) Estimated GFR (Cockcroft-Gault) 60.2 60.2 BUN/Creatinine Ratio 24 (6-20) 19 (6-20) Glucose Level 129 mg/dL (70-99) 112 mg/dL (70-99) Calcium Level 10.1 mg/dL (8.5-10.1) 8.8 mg/dL (8.5-10.1) Magnesium Level 2.0 mg/dL (1.8-2.4) Total Bilirubin 0.2 mg/dL (0.2-1.0) 0.4 mg/dL (0.2-1.0) Aspartate Amino Transf (AST/SGOT) 19 U/L (15-37) 15 U/L (15-37) Alanine Aminotransferase (ALT/SGPT) 15 U/L (14-59) 11 U/L (14-59) Alkaline Phosphatase 96 U/L (46-116) 67 U/L (46-116) Troponin I Quantitative < 0.017 ng/mL (0.000-0.055) JR-Ovm-P-Type Natriuretic Peptide 1174 pg/mL (0-449) Total Protein 8.3 g/dL (6.4-8.2) 6.2 g/dL (6.4-8.2) Albumin 4.2 g/dL (3.4-5.0) 3.1 g/dL (3.4-5.0) Albumin/Globulin Ratio 1.0 (1.0-1.7) 1.0 (1.0-1.7) Lipase 457 U/L (73-393) Urine Collection Type U cath Urine Color Yellow Urine Clarity Clear Urine pH 5.5 Urine Specific [place] 1.025 Urine Protein 30 mg/dL (NEG-TRACE) Urine Glucose (UA) Negative mg/dL (NEG) Urine Ketones (Stick) Negative mg/dL (NEG) Urine Blood Negative (NEG) Urine Nitrite Positive (NEG) Urine Bilirubin Negative (NEG) Urine Urobilinogen Dipstick 0.2 mg/dL (0.2 mg/dL) Urine Leukocyte Esterase Small (NEG) Urine RBC 0 /HPF (0-2) Urine WBC 20-40 /HPF (0-4) Urine Squamous Epithelial Cells Few /LPF Urine Bacteria Many /HPF (0-FEW) Urine Hyaline Casts Moderate /HPF Urine Mucus Marked /LPF Lactic Acid Level 2.0 mmol/L (0.4-2.0) Laboratory Tests Test 06/20/18 17:47 06/20/18 18:15 06/21/18 00:05 06/21/18 03:55 White Blood Count 15.6 x10^3/uL (4.0-11.0) 9.2 x10^3/uL (4.0-11.0) Red Blood Count 4.81 x10^6/uL (3.50-5.40) 3.83 x10^6/uL (3.50-5.40) Hemoglobin 15.1 g/dL (12.0-15.5) 12.1 g/dL (12.0-15.5) Hematocrit 45.9 % (36.0-47.0) 37.0 % (36.0-47.0) Mean Corpuscular Volume 96 fL (79-100) 97 fL (79-100) Mean Corpuscular Hemoglobin 31 pg (25-35) 32 pg (25-35) Mean Corpuscular Hemoglobin Concent 33 g/dL (31-37) 33 g/dL (31-37) Red Cell Distribution Width 13.0 % (11.5-14.5) 12.8 % (11.5-14.5) Platelet Count 258 x10^3/uL (140-400) 215 x10^3/uL (140-400) Neutrophils (%) (Auto) 82 % (31-73) 72 % (31-73) Lymphocytes (%) (Auto) 10 % (24-48) 20 % (24-48) Monocytes (%) (Auto) 7 % (0-9) 6 % (0-9) Eosinophils (%) (Auto) 1 % (0-3) 1 % (0-3) Basophils (%) (Auto) 0 % (0-3) 0 % (0-3) Neutrophils # (Auto) 12.8 x10^3uL (1.8-7.7) 6.6 x10^3uL (1.8-7.7) Lymphocytes # (Auto) 1.5 x10^3/uL (1.0-4.8) 1.9 x10^3/uL (1.0-4.8) Monocytes # (Auto) 1.1 x10^3/uL (0.0-1.1) 0.6 x10^3/uL (0.0-1.1) Eosinophils # (Auto) 0.1 x10^3/uL (0.0-0.7) 0.1 x10^3/uL (0.0-0.7) Basophils # (Auto) 0.0 x10^3/uL (0.0-0.2) 0.0 x10^3/uL (0.0-0.2) Segmented Neutrophils % 62 % (35-66) Band Neutrophils % 15 % (0-9) Lymphocytes % 11 % (24-48) Atypical Lymphocytes % (Manual) 2 % (0-0) Monocytes % 9 % (0-10) Eosinophils % 1 % (0-5) Platelet Estimate Adequate (ADEQUATE) Sodium Level 139 mmol/L (136-145) 143 mmol/L (136-145) Potassium Level 3.7 mmol/L (3.5-5.1) 3.8 mmol/L (3.5-5.1) Chloride Level 104 mmol/L (98-107) 108 mmol/L (98-107) Carbon Dioxide Level 24 mmol/L (21-32) 26 mmol/L (21-32) Anion Gap 11 (6-14) 9 (6-14) Blood Urea Nitrogen 22 mg/dL (7-20) 17 mg/dL (7-20) Creatinine 0.9 mg/dL (0.6-1.0) 0.9 mg/dL (0.6-1.0) Estimated GFR (Cockcroft-Gault) 60.2 60.2 BUN/Creatinine Ratio 24 (6-20) 19 (6-20) Glucose Level 129 mg/dL (70-99) 112 mg/dL (70-99) Calcium Level 10.1 mg/dL (8.5-10.1) 8.8 mg/dL (8.5-10.1) Magnesium Level 2.0 mg/dL (1.8-2.4) Total Bilirubin 0.2 mg/dL (0.2-1.0) 0.4 mg/dL (0.2-1.0) Aspartate Amino Transf (AST/SGOT) 19 U/L (15-37) 15 U/L (15-37) Alanine Aminotransferase (ALT/SGPT) 15 U/L (14-59) 11 U/L (14-59) Alkaline Phosphatase 96 U/L (46-116) 67 U/L (46-116) Troponin I Quantitative < 0.017 ng/mL (0.000-0.055) YK-Doh-D-Type Natriuretic Peptide 1174 pg/mL (0-449) Total Protein 8.3 g/dL (6.4-8.2) 6.2 g/dL (6.4-8.2) Albumin 4.2 g/dL (3.4-5.0) 3.1 g/dL (3.4-5.0) Albumin/Globulin Ratio 1.0 (1.0-1.7) 1.0 (1.0-1.7) Lipase 457 U/L (73-393) Urine Collection Type U cath Urine Color Yellow Urine Clarity Clear Urine pH 5.5 Urine Specific [place] 1.025 Urine Protein 30 mg/dL (NEG-TRACE) Urine Glucose (UA) Negative mg/dL (NEG) Urine Ketones (Stick) Negative mg/dL (NEG) Urine Blood Negative (NEG) Urine Nitrite Positive (NEG) Urine Bilirubin Negative (NEG) Urine Urobilinogen Dipstick 0.2 mg/dL (0.2 mg/dL) Urine Leukocyte Esterase Small (NEG) Urine RBC 0 /HPF (0-2) Urine WBC 20-40 /HPF (0-4) Urine Squamous Epithelial Cells Few /LPF Urine Bacteria Many /HPF (0-FEW) Urine Hyaline Casts Moderate /HPF Urine Mucus Marked /LPF Lactic Acid Level 2.0 mmol/L (0.4-2.0) Medications Current Medications Famotidine (Pepcid Vial) 20 mg 1X ONCE IVP Last administered on 06/20/18at 18:06; Start 06/20/18 at 17:45; Stop 06/20/18 at 17:46; Status DC Ondansetron HCl (Zofran) 4 mg 1X ONCE IV Last administered on 06/20/18at 18:06; Start 06/20/18 at 17:45; Stop 06/20/18 at 17:46; Status DC Sodium Chloride 1,000 ml @ 1,000 mls/hr 1X ONCE IV Last administered on 06/20/18at 18:05; Start 06/20/18 at 17:45; Stop 06/20/18 at 18:44; Status DC Iohexol (Omnipaque 300 Mg/ml) 75 ml 1X ONCE IV Last administered on 06/20/18at 19:00; Start 06/20/18 at 18:00; Stop 06/20/18 at 18:01; Status DC Info (CONTRAST GIVEN -- Rx MONITORING) 1 each PRN DAILY PRN MC SEE COMMENTS; Start 06/20/18 at 18:00; Stop 06/22/18 at 17:59 Ondansetron HCl (Zofran) 4 mg PRN Q8HRS PRN IV NAUSEA/VOMITING; Start 06/20/18 at 19:30; Stop 06/21/18 at 19:29 Fentanyl Citrate (Fentanyl 2ml Vial) 50 mcg PRN Q1HR PRN IV PAIN; Start 06/20/18 at 19:30; Stop 06/21/18 at 19:29 Sodium Chloride 1,000 ml @ 125 mls/hr 1X ONCE IV Last administered on 06/20/18at 19:40; Start 06/20/18 at 19:30; Stop 06/21/18 at 03:29; Status DC Ceftriaxone Sodium (Rocephin) 1 gm 1X ONCE IVP Last administered on 06/20/18at 19:38; Start 06/20/18 at 20:00; Stop 06/20/18 at 20:01; Status DC Ceftriaxone Sodium (Rocephin) 1 gm Q24H IVP ; Start 06/21/18 at 20:00 Sodium Chloride 1,000 ml @ 100 mls/hr 1X ONCE IV Last administered on 06/20/18at 23:43; Start 06/20/18 at 21:00; Stop 06/21/18 at 06:59; Status DC Aspirin (Children'S Aspirin) 81 mg DAILY PO Last administered on 06/21/18at 09:46; Start 06/21/18 at 09:00 Losartan Potassium (Cozaar) 25 mg DAILY PO ; Start 06/21/18 at 09:00; Stop 06/21/18 at 09:00; Status DC Metoprolol Succinate (Toprol Xl) 25 mg DAILYWSUP PO ; Start 06/20/18 at 21:30; Stop 06/20/18 at 23:06; Status DC Ascorbic Acid (Vitamin C) 500 mg DAILY PO ; Start 06/21/18 at 09:00; Stop 06/21/18 at 09:00; Status DC Non-Formulary Medication (Selegiline Hcl ) 5 mg BID PO ; Start 06/20/18 at 21:00; Stop 06/20/18 at 23:06; Status DC Non-Formulary Medication (Ubidecarenone (Co Q-10)) 10 mg BID PO ; Start 06/20/18 at 21:00; Status UNV Non-Formulary Medication ([misce] ) 400 mg HS PO ; Start 06/20/18 at 21:00; Stop 06/20/18 at 23:06; Status DC Enoxaparin Sodium (Lovenox Per Pharmacy Prophylaxis Dosing) 1 each PRN DAILY PRN MC SEE COMMENTS; Start 06/20/18 at 22:00 Enoxaparin Sodium (Lovenox 40mg Syringe) 40 mg Q24H SQ Last administered on 06/20/18at 23:43; Start 06/20/18 at 22:00 Losartan Potassium (Cozaar) 100 mg DAILY PO Last administered on 06/21/18at 09:47; Start 06/21/18 at 09:00 Buspirone HCl (Buspar) 5 mg Q8HRS PO Last administered on 06/21/18at 06:05; Start 06/21/18 at 00:00 Docusate Sodium (Colace) 100 mg PRN QHS PRN PO CONSTIPATION 1ST CHOICE; Start 06/20/18 at 23:15 Metoprolol Tartrate (Lopressor) 50 mg BID PO Last administered on 06/21/18at 09:46; Start 06/21/18 at 00:00 Trazodone HCl (Desyrel) 50 mg QHS PO Last administered on 06/20/18at 23:43; Start 06/21/18 at 00:00 Acetaminophen (Tylenol) 500 mg PRN Q4HRS PRN PO MILD PAIN / TEMP; Start 06/20/18 at 23:15 Bisacodyl (Dulcolax Supp) 10 mg PRN DAILY PRN [place] CONSTIPATION 2ND CHOICE; Start 06/20/18 at 23:15 Calcium Carbonate/ Glycine (Tums) 500 mg PRN Q4HRS PRN PO INDIGESTION; Start 06/20/18 at 23:15 Loperamide HCl (Imodium) 2 mg PRN Q2HRS PRN PO DIARRHEA; Start 06/20/18 at 23:15 Multi-Ingredient Ointment (Analgesic [place]) 1 myranda QID TP Last administered on 06/21/18at 09:47; Start 06/21/18 at 00:00 Lactobacillus Rhamnosus (Culturelle) 1 cap BID PO Last administered on 06/21/18at 09:46; Start 06/21/18 at 09:00 Active Scripts Active Reported Biofreeze (Menthol) 118 Ml Gel..ml. 118 Ml TP QID Trazodone Hcl 50 Mg Tablet 1 Tab PO QHS Buspirone Hcl 5 Mg Tablet 1 Tab PO Q8HRS Metoprolol Tartrate 50 Mg Tablet 1 Tab PO BID Imodium A-D (Loperamide HCl) 2 Mg Capsule 2 Mg PO Q2HR PRN Tums (Calcium Carbonate) 300 Mg Tab.chew 500 Mg PO Q4HRS PRN Bisacodyl 10 Mg Supp.rect 10 Mg RC PRN Q24HRS PRN Colace (Docusate Sodium) 100 Mg Capsule 1 Cap PO QHS PRN Tylenol Extra Strength (Acetaminophen) 500 Mg Tablet 500 Mg PO Q4HRS PRN Losartan Potassium (Losartan Potassium) 25 Mg Tablet 100 Mg PO DAILY Aspirin 81 Mg Tab.chew 1 Tab PO DAILY Vitals/I & O Vital Sign - Last 24 Hours 06/20/18 06/20/18 06/20/18 06/20/18 17:29 17:41 18:41 19:43 Temp 98.4 98.4 Pulse 104 106 98 106 Resp 20 B/P (MAP) 207/95 (132) 199/94 (129) 157/67 (97) 160/70 (100) Pulse Ox 94 93 94 95 O2 Delivery Room Air Room Air Room Air Room Air 06/20/18 06/20/18 06/20/18 06/20/18 20:30 22:47 23:38 23:43 Temp 98.4 98.9 98.4 98.9 Pulse 109 104 109 Resp 21 19 B/P (MAP) 152/79 (103) 147/60 (89) 152/79 Pulse Ox 90 91 O2 Delivery Room Air Room Air Room Air 06/21/18 06/21/18 06/21/18 06/21/18 03:15 07:00 08:00 09:46 Temp 99.2 97.6 99.2 97.6 Pulse 81 71 71 Resp 19 18 B/P (MAP) 180/87 (118) 155/69 (97) 155/69 Pulse Ox 91 94 O2 Delivery Room Air Room Air Room Air 06/21/18 09:47 Pulse 71 B/P (MAP) 155/69 Intake and Output 06/20/18 06/20/18 06/21/18 14:59 22:59 06:59 Intake Total 1000 ml 1000 ml Output Total 1 ml Balance 999 ml 1000 ml KENYA NATARAJAN MD Jun 21, 2018 10:50
[2018-06-21 11:00] VITALS: BP 146/70
[2018-06-21 15:00] VITALS: BP 130/49
--- NOTE | 2018-06-21 15:08 | EKG ---
[facility] [address] [place] [address] Test Date: 2018-06-20 Test Time: 17:57:56 Pat Name: BENOIT VAZ Department: Room: 521 1 Gender: F Telephone Maintainer: : [id number] Requested By: JANNETTE CONTRERAS Order Number: [id number] Reading MD: Antwon Mcbride Measurements Intervals [place] Rate: 101 P: 41 VA: 184 QRS: -39 QRSD: 82 T: 33 QT: 326 QTc: 423 Interpretive Statements SINUS TACHYCARDIA ATRIAL PREMATURE COMPLEX(ES) LEFT ATRIAL ABNORMALITY ABNORMAL LEFT AXIS DEVIATION LEFT ANTERIOR FASCICULAR BLOCK LVH WITH REPOLARIZATION ABNORMALITY QRS(T) CONTOUR ABNORMALITY CONSIDER ANTEROSEPTAL MYOCARDIAL DAMAGE ABNORMAL ECG Electronically Signed On 06-25-2018 12:12:39 CDT by Antwon Mcbride
[2018-06-21 19:00] VITALS: BP 152/80
[2018-06-21] MEDS: traZODone 50 MG TABLET. PO SCH (20:26)
[2018-06-21] MEDS: ENOXAPARIN 40 MG/0.4 ML SYRINGE. SQ SCH (20:27)
[2018-06-21] MEDS: cefTRIAXone IV Push 1 GM VIAL. IVP SCH (20:28)
[2018-06-21 23:00] VITALS: BP 158/80
[2018-06-22 03:00] VITALS: BP 158/93
[2018-06-22] MEDS: busPIRone 5 MG TABLET. PO SCH ×3 (05:31→20:55)
[2018-06-22 07:00] VITALS: BP 156/89
[2018-06-22] MEDS: METHYL SALICYLATE/MENTHOL TOPICAL OINTMENT 29GM TUBE. TP SCH ×4 (09:00→20:56)
[2018-06-22] MEDS: LOSARTAN POTASSIUM 50 MG TABLET. PO SCH (09:06)
[2018-06-22] MEDS: LACTOBACILLUS RHAMNOSUS GG 1 CAPSULE. PO SCH ×2 (09:06→20:55)
[2018-06-22] MEDS: ASPIRIN CHEWABLE 81 MG TABLET. PO SCH (09:07)
[2018-06-22] MEDS: METOPROLOL TART IMMED RELEASE 50 MG TABLET. PO SCH ×2 (09:07→20:55)
[2018-06-22 09:36] LABS: BASO % 1 % (0-3); EOS # 0.2 x10^3/uL (0.0-0.7); EOS % 4 % (0-3); HEMATOCRIT 37.5 % (36.0-47.0); HEMOGLOBIN 12.4 g/dL (12.0-15.5); LYMPH # 2.2 x10^3/uL (1.0-4.8); LYMPH % 32 % (24-48); MEAN CORPUSCULAR HEMOGLOBIN 32 pg (25-35); MEAN CORPUSCULAR HGB CONC 33 g/dL (31-37); MEAN CORPUSCULAR VOLUME 95 fL (79-100); MONO # 0.6 x10^3/uL (0.0-1.1); MONO % 8 % (0-9); NEUT # 3.8 x10^3uL (1.8-7.7); NEUT % 56 % (31-73); PLATELET COUNT 196 x10^3/uL (140-400); RED BLOOD COUNT 3.95 x10^6/uL (3.50-5.40); RED CELL DISTRIBUTION WIDTH 12.7 % (11.5-14.5); WHITE BLOOD COUNT 6.8 x10^3/uL (4.0-11.0)
[2018-06-22 09:37] LABS: ALBUMIN 3.2 g/dL (3.4-5.0); CALCIUM 9.2 mg/dL (8.5-10.1); CREATININE 0.8 mg/dL (0.6-1.0); POTASSIUM 3.6 mmol/L (3.5-5.1); TOTAL BILIRUBIN 0.5 mg/dL (0.2-1.0); TOTAL PROTEIN 6.5 g/dL (6.4-8.2)
[2018-06-22 11:00] VITALS: BP 168/64
--- NOTE | 2018-06-22 12:37 | PDOC ---
PROGRESS NOTES Chief Complaint Chief Complaint nausea, vomiting History of Present Illness History of Present Illness Patient resting comfortably in bed, nausea and vomiting improved. Appears to be lucid but when asked it is the year 1949 and Jhonatan is president. Vitals Vitals Vital Signs Date Time Temp Pulse Resp B/P (MAP) Pulse Ox O2 Delivery O2 Flow Rate FiO2 06/22/18 11:00 99.3 73 18 168/64 (98) 94 Nasal Cannula 99.3 Physical Exam Physical Exam Physical Exam General: Alert, Cooperative, No acute distress HEENT: Atraumatic, PERRLA, Mucous membranes. moist/pink Lungs: Normal air movement Heart: no murmurs Abdomen: Normal bowel sounds, Soft Extremities: No edema, Normal pulses Neuro: Normal tone, Sensation intact Psych/Mental Status: (withdrawn, not oriented, poor recall) General: Alert, Cooperative, No acute distress, mild distress, Other (Oriented x1) Heart: Regular rate, Normal S1, Normal S2, No murmurs Lungs: Clear, Crackles Abdomen: Normal bowel sounds, Soft, No tenderness Extremities: No edema, Normal pulses Labs LABS Laboratory Tests Test 06/22/18 08:45 White Blood Count 6.8 x10^3/uL (4.0-11.0) Red Blood Count 3.95 x10^6/uL (3.50-5.40) Hemoglobin 12.4 g/dL (12.0-15.5) Hematocrit 37.5 % (36.0-47.0) Mean Corpuscular Volume 95 fL (79-100) Mean Corpuscular Hemoglobin 32 pg (25-35) Mean Corpuscular Hemoglobin Concent 33 g/dL (31-37) Red Cell Distribution Width 12.7 % (11.5-14.5) Platelet Count 196 x10^3/uL (140-400) Neutrophils (%) (Auto) 56 % (31-73) Lymphocytes (%) (Auto) 32 % (24-48) Monocytes (%) (Auto) 8 % (0-9) Eosinophils (%) (Auto) 4 % (0-3) Basophils (%) (Auto) 1 % (0-3) Neutrophils # (Auto) 3.8 x10^3uL (1.8-7.7) Lymphocytes # (Auto) 2.2 x10^3/uL (1.0-4.8) Monocytes # (Auto) 0.6 x10^3/uL (0.0-1.1) Eosinophils # (Auto) 0.2 x10^3/uL (0.0-0.7) Basophils # (Auto) 0.0 x10^3/uL (0.0-0.2) Sodium Level 145 mmol/L (136-145) Potassium Level 3.6 mmol/L (3.5-5.1) Chloride Level 108 mmol/L (98-107) Carbon Dioxide Level 26 mmol/L (21-32) Anion Gap 11 (6-14) Blood Urea Nitrogen 9 mg/dL (7-20) Creatinine 0.8 mg/dL (0.6-1.0) Estimated GFR (Cockcroft-Gault) 69.0 BUN/Creatinine Ratio 11 (6-20) Glucose Level 110 mg/dL (70-99) Calcium Level 9.2 mg/dL (8.5-10.1) Total Bilirubin 0.5 mg/dL (0.2-1.0) Aspartate Amino Transf (AST/SGOT) 25 U/L (15-37) Alanine Aminotransferase (ALT/SGPT) 13 U/L (14-59) Alkaline Phosphatase 77 U/L (46-116) Total Protein 6.5 g/dL (6.4-8.2) Albumin 3.2 g/dL (3.4-5.0) Albumin/Globulin Ratio 1.0 (1.0-1.7) Lipase 174 U/L (73-393) Review of Systems Review of Systems denies nausea, vomiting. ROS limited, poor historian Assessment and Plan Assessmemt and Plan Problems Medical Problems: (1) Acute pancreatitis Status: Acute (2) Hypertension Status: Acute This is a pleasantly confused 82 yo F with PMH of HTN and dementia who lives in a NH who presented to the ED on 06/20 with nausea and vomiting, found to have mild pancreatitis with lipase of 457. Her urine was noted for UTI and met sepsis criteria. Blood cultures were obtained and she was started on rocephin in the ED and continued during admission. GI was consulted, evaluation pending. 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 Labs Laboratory Tests Test 06/20/18 17:47 06/20/18 18:15 06/21/18 00:05 06/21/18 03:55 White Blood Count 15.6 x10^3/uL (4.0-11.0) 9.2 x10^3/uL (4.0-11.0) Red Blood Count 4.81 x10^6/uL (3.50-5.40) 3.83 x10^6/uL (3.50-5.40) Hemoglobin 15.1 g/dL (12.0-15.5) 12.1 g/dL (12.0-15.5) Hematocrit 45.9 % (36.0-47.0) 37.0 % (36.0-47.0) Mean Corpuscular Volume 96 fL (79-100) 97 fL (79-100) Mean Corpuscular Hemoglobin 31 pg (25-35) 32 pg (25-35) Mean Corpuscular Hemoglobin Concent 33 g/dL (31-37) 33 g/dL (31-37) Red Cell Distribution Width 13.0 % (11.5-14.5) 12.8 % (11.5-14.5) Platelet Count 258 x10^3/uL (140-400) 215 x10^3/uL (140-400) Neutrophils (%) (Auto) 82 % (31-73) 72 % (31-73) Lymphocytes (%) (Auto) 10 % (24-48) 20 % (24-48) Monocytes (%) (Auto) 7 % (0-9) 6 % (0-9) Eosinophils (%) (Auto) 1 % (0-3) 1 % (0-3) Basophils (%) (Auto) 0 % (0-3) 0 % (0-3) Neutrophils # (Auto) 12.8 x10^3uL (1.8-7.7) 6.6 x10^3uL (1.8-7.7) Lymphocytes # (Auto) 1.5 x10^3/uL (1.0-4.8) 1.9 x10^3/uL (1.0-4.8) Monocytes # (Auto) 1.1 x10^3/uL (0.0-1.1) 0.6 x10^3/uL (0.0-1.1) Eosinophils # (Auto) 0.1 x10^3/uL (0.0-0.7) 0.1 x10^3/uL (0.0-0.7) Basophils # (Auto) 0.0 x10^3/uL (0.0-0.2) 0.0 x10^3/uL (0.0-0.2) Segmented Neutrophils % 62 % (35-66) Band Neutrophils % 15 % (0-9) Lymphocytes % 11 % (24-48) Atypical Lymphocytes % (Manual) 2 % (0-0) Monocytes % 9 % (0-10) Eosinophils % 1 % (0-5) Platelet Estimate Adequate (ADEQUATE) Sodium Level 139 mmol/L (136-145) 143 mmol/L (136-145) Potassium Level 3.7 mmol/L (3.5-5.1) 3.8 mmol/L (3.5-5.1) Chloride Level 104 mmol/L (98-107) 108 mmol/L (98-107) Carbon Dioxide Level 24 mmol/L (21-32) 26 mmol/L (21-32) Anion Gap 11 (6-14) 9 (6-14) Blood Urea Nitrogen 22 mg/dL (7-20) 17 mg/dL (7-20) Creatinine 0.9 mg/dL (0.6-1.0) 0.9 mg/dL (0.6-1.0) Estimated GFR (Cockcroft-Gault) 60.2 60.2 BUN/Creatinine Ratio 24 (6-20) 19 (6-20) Glucose Level 129 mg/dL (70-99) 112 mg/dL (70-99) Calcium Level 10.1 mg/dL (8.5-10.1) 8.8 mg/dL (8.5-10.1) Magnesium Level 2.0 mg/dL (1.8-2.4) Total Bilirubin 0.2 mg/dL (0.2-1.0) 0.4 mg/dL (0.2-1.0) Aspartate Amino Transf (AST/SGOT) 19 U/L (15-37) 15 U/L (15-37) Alanine Aminotransferase (ALT/SGPT) 15 U/L (14-59) 11 U/L (14-59) Alkaline Phosphatase 96 U/L (46-116) 67 U/L (46-116) Troponin I Quantitative < 0.017 ng/mL (0.000-0.055) FR-Gqa-A-Type Natriuretic Peptide 1174 pg/mL (0-449) Total Protein 8.3 g/dL (6.4-8.2) 6.2 g/dL (6.4-8.2) Albumin 4.2 g/dL (3.4-5.0) 3.1 g/dL (3.4-5.0) Albumin/Globulin Ratio 1.0 (1.0-1.7) 1.0 (1.0-1.7) Lipase 457 U/L (73-393) Urine Collection Type U cath Urine Color Yellow Urine Clarity Clear Urine pH 5.5 Urine Specific Lorraine 1.025 Urine Protein 30 mg/dL (NEG-TRACE) Urine Glucose (UA) Negative mg/dL (NEG) Urine Ketones (Stick) Negative mg/dL (NEG) Urine Blood Negative (NEG) Urine Nitrite Positive (NEG) Urine Bilirubin Negative (NEG) Urine Urobilinogen Dipstick 0.2 mg/dL (0.2 mg/dL) Urine Leukocyte Esterase Small (NEG) Urine RBC 0 /HPF (0-2) Urine WBC 20-40 /HPF (0-4) Urine Squamous Epithelial Cells Few /LPF Urine Bacteria Many /HPF (0-FEW) Urine Hyaline Casts Moderate /HPF Urine Mucus Marked /LPF Lactic Acid Level 2.0 mmol/L (0.4-2.0) Test 06/21/18 05:00 06/22/18 08:45 Nasal Screen MRSA (PCR) Negative (Negative) White Blood Count 6.8 x10^3/uL (4.0-11.0) Red Blood Count 3.95 x10^6/uL (3.50-5.40) Hemoglobin 12.4 g/dL (12.0-15.5) Hematocrit 37.5 % (36.0-47.0) Mean Corpuscular Volume 95 fL (79-100) Mean Corpuscular Hemoglobin 32 pg (25-35) Mean Corpuscular Hemoglobin Concent 33 g/dL (31-37) Red Cell Distribution Width 12.7 % (11.5-14.5) Platelet Count 196 x10^3/uL (140-400) Neutrophils (%) (Auto) 56 % (31-73) Lymphocytes (%) (Auto) 32 % (24-48) Monocytes (%) (Auto) 8 % (0-9) Eosinophils (%) (Auto) 4 % (0-3) Basophils (%) (Auto) 1 % (0-3) Neutrophils # (Auto) 3.8 x10^3uL (1.8-7.7) Lymphocytes # (Auto) 2.2 x10^3/uL (1.0-4.8) Monocytes # (Auto) 0.6 x10^3/uL (0.0-1.1) Eosinophils # (Auto) 0.2 x10^3/uL (0.0-0.7) Basophils # (Auto) 0.0 x10^3/uL (0.0-0.2) Sodium Level 145 mmol/L (136-145) Potassium Level 3.6 mmol/L (3.5-5.1) Chloride Level 108 mmol/L (98-107) Carbon Dioxide Level 26 mmol/L (21-32) Anion Gap 11 (6-14) Blood Urea Nitrogen 9 mg/dL (7-20) Creatinine 0.8 mg/dL (0.6-1.0) Estimated GFR (Cockcroft-Gault) 69.0 BUN/Creatinine Ratio 11 (6-20) Glucose Level 110 mg/dL (70-99) Calcium Level 9.2 mg/dL (8.5-10.1) Total Bilirubin 0.5 mg/dL (0.2-1.0) Aspartate Amino Transf (AST/SGOT) 25 U/L (15-37) Alanine Aminotransferase (ALT/SGPT) 13 U/L (14-59) Alkaline Phosphatase 77 U/L (46-116) Total Protein 6.5 g/dL (6.4-8.2) Albumin 3.2 g/dL (3.4-5.0) Albumin/Globulin Ratio 1.0 (1.0-1.7) Lipase 174 U/L (73-393) Laboratory Tests Test 06/22/18 08:45 White Blood Count 6.8 x10^3/uL (4.0-11.0) Red Blood Count 3.95 x10^6/uL (3.50-5.40) Hemoglobin 12.4 g/dL (12.0-15.5) Hematocrit 37.5 % (36.0-47.0) Mean Corpuscular Volume 95 fL (79-100) Mean Corpuscular Hemoglobin 32 pg (25-35) Mean Corpuscular Hemoglobin Concent 33 g/dL (31-37) Red Cell Distribution Width 12.7 % (11.5-14.5) Platelet Count 196 x10^3/uL (140-400) Neutrophils (%) (Auto) 56 % (31-73) Lymphocytes (%) (Auto) 32 % (24-48) Monocytes (%) (Auto) 8 % (0-9) Eosinophils (%) (Auto) 4 % (0-3) Basophils (%) (Auto) 1 % (0-3) Neutrophils # (Auto) 3.8 x10^3uL (1.8-7.7) Lymphocytes # (Auto) 2.2 x10^3/uL (1.0-4.8) Monocytes # (Auto) 0.6 x10^3/uL (0.0-1.1) Eosinophils # (Auto) 0.2 x10^3/uL (0.0-0.7) Basophils # (Auto) 0.0 x10^3/uL (0.0-0.2) Sodium Level 145 mmol/L (136-145) Potassium Level 3.6 mmol/L (3.5-5.1) Chloride Level 108 mmol/L (98-107) Carbon Dioxide Level 26 mmol/L (21-32) Anion Gap 11 (6-14) Blood Urea Nitrogen 9 mg/dL (7-20) Creatinine 0.8 mg/dL (0.6-1.0) Estimated GFR (Cockcroft-Gault) 69.0 BUN/Creatinine Ratio 11 (6-20) Glucose Level 110 mg/dL (70-99) Calcium Level 9.2 mg/dL (8.5-10.1) Total Bilirubin 0.5 mg/dL (0.2-1.0) Aspartate Amino Transf (AST/SGOT) 25 U/L (15-37) Alanine Aminotransferase (ALT/SGPT) 13 U/L (14-59) Alkaline Phosphatase 77 U/L (46-116) Total Protein 6.5 g/dL (6.4-8.2) Albumin 3.2 g/dL (3.4-5.0) Albumin/Globulin Ratio 1.0 (1.0-1.7) Lipase 174 U/L (73-393) Microbiology 06/21/18 Blood Culture - Preliminary, Resulted NO GROWTH AFTER 1 DAY Medications Current Medications Famotidine (Pepcid Vial) 20 mg 1X ONCE IVP Last administered on 06/20/18at 18:06; Start 06/20/18 at 17:45; Stop 06/20/18 at 17:46; Status DC Ondansetron HCl (Zofran) 4 mg 1X ONCE IV Last administered on 06/20/18at 18:06; Start 06/20/18 at 17:45; Stop 06/20/18 at 17:46; Status DC Sodium Chloride 1,000 ml @ 1,000 mls/hr 1X ONCE IV Last administered on 06/20/18at 18:05; Start 06/20/18 at 17:45; Stop 06/20/18 at 18:44; Status DC Iohexol (Omnipaque 300 Mg/ml) 75 ml 1X ONCE IV Last administered on 06/20/18at 19:00; Start 06/20/18 at 18:00; Stop 06/20/18 at 18:01; Status DC Info (CONTRAST GIVEN -- Rx MONITORING) 1 each PRN DAILY PRN MC SEE COMMENTS; Start 06/20/18 at 18:00; Stop 06/22/18 at 17:59 Ondansetron HCl (Zofran) 4 mg PRN Q8HRS PRN IV NAUSEA/VOMITING; Start 06/20/18 at 19:30; Stop 06/21/18 at 19:29; Status DC Fentanyl Citrate (Fentanyl 2ml Vial) 50 mcg PRN Q1HR PRN IV PAIN; Start 06/20/18 at 19:30; Stop 06/21/18 at 19:29; Status DC Sodium Chloride 1,000 ml @ 125 mls/hr 1X ONCE IV Last administered on 06/20/18at 19:40; Start 06/20/18 at 19:30; Stop 06/21/18 at 03:29; Status DC Ceftriaxone Sodium (Rocephin) 1 gm 1X ONCE IVP Last administered on 06/20/18at 19:38; Start 06/20/18 at 20:00; Stop 06/20/18 at 20:01; Status DC Ceftriaxone Sodium (Rocephin) 1 gm Q24H IVP Last administered on 06/21/18at 20:28; Start 06/21/18 at 20:00 Sodium Chloride 1,000 ml @ 100 mls/hr 1X ONCE IV Last administered on at 23:43; Start 06/20/18 at 21:00; Stop 06/21/18 at 06:59; Status DC Aspirin (Children'S Aspirin) 81 mg DAILY PO Last administered on 06/22/18at 09:07; Start 06/21/18 at 09:00 Losartan Potassium (Cozaar) 25 mg DAILY PO ; Start 06/21/18 at 09:00; Stop at 09:00; Status DC Metoprolol Succinate (Toprol Xl) 25 mg DAILYWSUP PO ; Start 06/20/18 at 21:30; Stop 06/20/18 at 23:06; Status DC Ascorbic Acid (Vitamin C) 500 mg DAILY PO ; Start 06/21/18 at 09:00; Stop 06/21/18 at 09:00; Status DC Non-Formulary Medication (Selegiline Hcl ) 5 mg BID PO ; Start 06/20/18 at 21:00; Stop 06/20/18 at 23:06; Status DC Non-Formulary Medication (Ubidecarenone (Co Q-10)) 10 mg BID PO ; Start 06/20/18 at 21:00; Status UNV Non-Formulary Medication ([misce] ) 400 mg HS PO ; Start 06/20/18 at 21:00; Stop 06/20/18 at 23:06; Status DC Enoxaparin Sodium (Lovenox Per Pharmacy Prophylaxis Dosing) 1 each PRN DAILY PRN MC SEE COMMENTS; Start 06/20/18 at 22:00 Enoxaparin Sodium (Lovenox 40mg Syringe) 40 mg Q24H SQ Last administered on 06/21/18 20:27; Start 06/20/18 at 22:00 Losartan Potassium (Cozaar) 100 mg DAILY PO Last administered on 06/22/18 09 :06; Start 06/21/18 at 09:00 Buspirone HCl (Buspar) 5 mg Q8HRS PO Last administered on 06/22/18 05:31; Start 06/21/18 at 00:00 Docusate Sodium (Colace) 100 mg PRN QHS PRN PO CONSTIPATION 1ST CHOICE; Start 06/20/18 at 23:15 Metoprolol Tartrate (Lopressor) 50 mg BID PO Last administered on 06/22/18 09:07; Start 06/21/18 at 00:00 Trazodone HCl (Desyrel) 50 mg QHS PO Last administered on 06/21/18 20:26; Start 06/21/18 at 00:00 Acetaminophen (Tylenol) 500 mg PRN Q4HRS PRN PO MILD PAIN / TEMP; Start 06/20 at 23:15 Bisacodyl (Dulcolax Supp) 10 mg PRN DAILY PRN NC CONSTIPATION 2ND CHOICE; Start 06/20/18 at 23:15 Calcium Carbonate/ Glycine (Tums) 500 mg PRN Q4HRS PRN PO INDIGESTION; Start 06/20/18 at 23:15 Loperamide HCl (Imodium) 2 mg PRN Q2HRS PRN PO DIARRHEA; Start 06/20/18 at 23:15 Multi-Ingredient Ointment (Analgesic Cordell) 1 myranda QID TP Last administered on 06/21/18 20:28; Start 06/21/18 at 00:00 Lactobacillus Rhamnosus (Culturelle) 1 cap BID PO Last administered on 06/22/18 09:06; Start 06/21/18 at 09:00 Active Scripts Active Reported Biofreeze (Menthol) 118 Ml Gel..ml. 118 Ml TP QID Trazodone Hcl 50 Mg Tablet 1 Tab PO QHS Buspirone Hcl 5 Mg Tablet 1 Tab PO Q8HRS Metoprolol Tartrate 50 Mg Tablet 1 Tab PO BID Imodium A-D (Loperamide HCl) 2 Mg Capsule 2 Mg PO Q2HR PRN Tums (Calcium Carbonate) 300 Mg Tab.chew 500 Mg PO Q4HRS PRN Bisacodyl 10 Mg Supp.rect 10 Mg RC PRN Q24HRS PRN Colace (Docusate Sodium) 100 Mg Capsule 1 Cap PO QHS PRN Tylenol Extra Strength (Acetaminophen) 500 Mg Tablet 500 Mg PO Q4HRS PRN Losartan Potassium (Losartan Potassium) 25 Mg Tablet 100 Mg PO DAILY Aspirin 81 Mg Tab.chew 1 Tab PO DAILY Vitals/I & O Vital Sign - Last 24 Hours 06/21/18 06/21/18 06/21/18 06/21/18 15:00 19:00 20:00 20:27 Temp 98.3 99.7 98.3 99.7 Pulse 72 80 80 Resp 18 B/P (MAP) 130/49 (76) 152/80 (104) 152/80 Pulse Ox 94 94 O2 Delivery Room Air Room Air Room Air 06/21/18 06/22/18 06/22/18 06/22/18 23:00 03:00 07:00 08:30 Temp 99.0 98.7 98.5 99.0 98.7 98.5 Pulse 66 67 68 Resp 18 18 18 B/P (MAP) 158/80 (106) 158/93 (114) 156/89 (111) Pulse Ox 92 93 94 O2 Delivery Room Air Room Air Room Air Room Air 06/22/18 06/22/18 06/22/18 09:06 09:07 11:00 Temp 99.3 99.3 Pulse 68 68 73 Resp 18 B/P (MAP) 156/89 156/89 168/64 (98) Pulse Ox 94 O2 Delivery Nasal Cannula Intake and Output 06/21/18 06/21/18 06/22/18 14:59 22:59 06:59 Intake Total 100 ml 100 ml Output Total 1 ml Balance -1 ml 100 ml 100 ml JAIRO ZAMUDIO III DO Jun 22, 2018 12:37
[2018-06-22] MEDS: IV NORMAL SALINE 1000ML BAG 1,000 ML IV SCH (13:02)
[2018-06-22 15:00] VITALS: BP 171/87
[2018-06-22 19:00] VITALS: BP 170/84
[2018-06-22] MEDS: cefTRIAXone IV Push 1 GM VIAL. IVP SCH (20:55)
[2018-06-22] MEDS: traZODone 50 MG TABLET. PO SCH (20:55)
[2018-06-22] MEDS: ENOXAPARIN 40 MG/0.4 ML SYRINGE. SQ SCH (21:02)
[2018-06-22 23:00] VITALS: BP 136/71
[2018-06-23] MEDS: IV NORMAL SALINE 1000ML BAG 1,000 ML IV SCH ×2 (01:50→15:41)
[2018-06-23 03:00] VITALS: BP 146/84
[2018-06-23 05:10] LABS: BASO % 1 % (0-3); EOS # 0.2 x10^3/uL (0.0-0.7); EOS % 4 % (0-3); HEMATOCRIT 33.7 % (36.0-47.0); HEMOGLOBIN 11.2 g/dL (12.0-15.5); LYMPH # 2.2 x10^3/uL (1.0-4.8); LYMPH % 41 % (24-48); MEAN CORPUSCULAR HEMOGLOBIN 32 pg (25-35); MEAN CORPUSCULAR HGB CONC 33 g/dL (31-37); MEAN CORPUSCULAR VOLUME 96 fL (79-100); MONO # 0.6 x10^3/uL (0.0-1.1); MONO % 10 % (0-9); NEUT # 2.4 x10^3uL (1.8-7.7); NEUT % 44 % (31-73); PLATELET COUNT 172 x10^3/uL (140-400); RED BLOOD COUNT 3.52 x10^6/uL (3.50-5.40); RED CELL DISTRIBUTION WIDTH 12.6 % (11.5-14.5); WHITE BLOOD COUNT 5.4 x10^3/uL (4.0-11.0)
[2018-06-23 05:26] LABS: CALCIUM 8.9 mg/dL (8.5-10.1); CREATININE 0.7 mg/dL (0.6-1.0); GFR 80.5; POTASSIUM 3.3 mmol/L (3.5-5.1)
[2018-06-23] MEDS: busPIRone 5 MG TABLET. PO SCH ×3 (06:07→20:51)
[2018-06-23 07:00] VITALS: BP 144/83
[2018-06-23] MEDS: METOPROLOL TART IMMED RELEASE 50 MG TABLET. PO SCH ×2 (08:37→20:52)
[2018-06-23] MEDS: LOSARTAN POTASSIUM 50 MG TABLET. PO SCH (08:37)
[2018-06-23] MEDS: ASPIRIN CHEWABLE 81 MG TABLET. PO SCH (08:37)
[2018-06-23] MEDS: LACTOBACILLUS RHAMNOSUS GG 1 CAPSULE. PO SCH ×2 (08:37→20:51)
[2018-06-23] MEDS: METHYL SALICYLATE/MENTHOL TOPICAL OINTMENT 29GM TUBE. TP SCH ×4 (09:00→20:53)
--- NOTE | 2018-06-23 09:53 | PDOC2 ---
GI CONSULT Reason For Consult: Acute pancreatitis HPI: HPI: 82 y/o female evaluated in ER on 06/20/18 for n/v and admitted. Lipase was very mildly elevated at 457 (now WNL) and GI asked to see for this. CT noted numerous hypoattenuating lesions in the liver and dilated pancreatic duct. She is on Rocephin for UTI and n/v has resolved - currently eating biscuits and gravy. She'd like to be discharged today. H/o dementia - all discussed w/ RN. She denies reflux/heartburn, dysphagia, n/v, abd pain, diarrhea, constipation, hematochezia, melena, change in appetite, bloating, early satiety, and weight loss. Thinks had previous EGD and colonoscopy that were unremarkable. Denies GB, liver, pancreas, and PUD history. Denies NSAID use (though is on ASA here). PMH: PMH: HTN, dementia left hip surgery, appendectomy, hysterectomy Social History: Smoke: Quit ALCOHOL: none Drugs: None ROS: GEN: Denies fevers, chills, sweats HEENT: Denies blurred vision, sore throat CV: Denies chest pain RESP: Denies shortness of air, cough GI: Per HPI : Denies hematuria, dysuria ENDO: Denies weight changes NEURO: Denies confusion, dizziness MSK: Denies weakness, joint pain/swelling SKIN: Denies jaundice, pruritus Vitals: Vitals: Vital Signs Date Time Temp Pulse Resp B/P (MAP) Pulse Ox O2 Delivery O2 Flow Rate FiO2 06/23/18 08:37 64 144/83 06/23/18 08:30 Room Air 06/23/18 07:00 98.7 18 93 98.7 Labs: Labs: Laboratory Tests Test 06/23/18 04:40 White Blood Count 5.4 x10^3/uL (4.0-11.0) Red Blood Count 3.52 x10^6/uL (3.50-5.40) Hemoglobin 11.2 g/dL (12.0-15.5) Hematocrit 33.7 % (36.0-47.0) Mean Corpuscular Volume 96 fL (79-100) Mean Corpuscular Hemoglobin 32 pg (25-35) Mean Corpuscular Hemoglobin Concent 33 g/dL (31-37) Red Cell Distribution Width 12.6 % (11.5-14.5) Platelet Count 172 x10^3/uL (140-400) Neutrophils (%) (Auto) 44 % (31-73) Lymphocytes (%) (Auto) 41 % (24-48) Monocytes (%) (Auto) 10 % (0-9) Eosinophils (%) (Auto) 4 % (0-3) Basophils (%) (Auto) 1 % (0-3) Neutrophils # (Auto) 2.4 x10^3uL (1.8-7.7) Lymphocytes # (Auto) 2.2 x10^3/uL (1.0-4.8) Monocytes # (Auto) 0.6 x10^3/uL (0.0-1.1) Eosinophils # (Auto) 0.2 x10^3/uL (0.0-0.7) Basophils # (Auto) 0.0 x10^3/uL (0.0-0.2) Sodium Level 142 mmol/L (136-145) Potassium Level 3.3 mmol/L (3.5-5.1) Chloride Level 109 mmol/L (98-107) Carbon Dioxide Level 25 mmol/L (21-32) Anion Gap 8 (6-14) Blood Urea Nitrogen 8 mg/dL (7-20) Creatinine 0.7 mg/dL (0.6-1.0) Estimated GFR (Cockcroft-Gault) 80.5 Glucose Level 96 mg/dL (70-99) Calcium Level 8.9 mg/dL (8.5-10.1) Lipase 153 U/L (73-393) URINE CULTURE Preliminary Preliminary report URINE CULTURE RES 1 Preliminary Escherichia coli Allergies: Coded Allergies: Penicillins (Verified Allergy, Intermediate, RASH, 02/28/17) Medications: Current Medications Medications (Trade) Dose Ordered Sig/Drea Route PRN Reason Start Time Stop Time Status Last Admin Dose Admin Sodium Chloride 1,000 ml @ 75 mls/hr [id number] IV 06/22/18 12:30 06/23/18 01:50 Imaging: Imaging: CXR Impression: 1. There is no lobar consolidation. There is mild interstitial opacity slightly increased left lung base, could be due to mild interstitial edema or infiltrate. CT A/P Impression: 1. Numerous hypoattenuating lesions in the liver the majority of which are too small to characterize. 2. Dilated pancreatic duct. This is of uncertain chronicity. Recommend follow-up ultrasound of the liver and pancreas. PE: GEN: NAD HEENT: Atraumatic, PERRL LUNGS: CTAB HEART: RRR ABD: NABS, S/ND/NT EXTREMITY: No edema SKIN: No rashes, no jaundice NEURO/PSYCH: A & O 3 A/P: A/P: N/v - resolved Mildly elevated lipase - resolved Leukocytosis (resolved), UTI Abnormal CT - hepatic lesions, dilated pancreatic duct CRC screen - reports normal colonoscopy in the past Dementia -- Symptoms resolved - ?related to UTI Would check US re: CT findings, could also consider MRCP for further eval re: dilated pancreatic duct. She has eaten today and would like to go home - will order US for tomorrow but this could be performed as outpt. MARY JO CASTILLO Jun 23, 2018 09:53
[2018-06-23 10:51] VITALS: BP 177/81
--- NOTE | 2018-06-23 10:55 | PDOC ---
PROGRESS NOTES Chief Complaint Chief Complaint nausea, vomiting History of Present Illness History of Present Illness Patient resting comfortably in bed, nausea and vomiting improved. Appears to be lucid but when asked it is the year 1947 and Jhonatan is president. Dilated pancreatic duct. This is of uncertain chronicity. Recommend follow-up ultrasound of the liver and pancreas, ORDERED. HYPOKALEMIA, REPLACED GI CONSULTED Vitals Vitals Vital Signs Date Time Temp Pulse Resp B/P (MAP) Pulse Ox O2 Delivery O2 Flow Rate FiO2 06/23/18 10:51 98.4 70 18 177/81 (113) 96 Room Air 98.4 Physical Exam Physical Exam Physical Exam General: Alert, Cooperative, No acute distress HEENT: Atraumatic, PERRLA, Mucous membranes. moist/pink Lungs: Normal air movement Heart: no murmurs Abdomen: Normal bowel sounds, Soft Extremities: No edema, Normal pulses Neuro: Normal tone, Sensation intact Psych/Mental Status: (withdrawn, not oriented, poor recall) General: Alert, Cooperative, No acute distress, mild distress, Other (Oriented x1) Heart: Regular rate, Normal S1, Normal S2, No murmurs Lungs: Clear, Crackles Abdomen: Normal bowel sounds, Soft, No tenderness Extremities: No edema, Normal pulses Labs LABS Liver: There is a 7 mm hypoattenuating lesion in the right lobe of the liver is too small to characterize. There is a 1.7 cm x 3.1 cm hypoattenuating lesion in the liver which has intermediate density this 2 additional smaller lesions which are also too small to characterize. Spleen: Unremarkable Pancreas: The pancreatic duct is mildly dilated. This is especially seen in the pancreatic head. Adrenal Glands: Unremarkable Kidneys: Small cyst on the right There is no mass or lymphadenopathy. There is no free air. There is no free fluid. Impression: No acute findings. End Impression CT Pelvis with Contrast: Findings: The urinary bladder appears normal. There is no free fluid. There is no lymphadenopathy. The appendix is not seen. There is moderate sigmoid diverticulosis without surrounding inflammation. Impression: 1. Numerous hypoattenuating lesions in the liver the majority of which are too small to characterize. 2. Dilated pancreatic duct. This is of uncertain chronicity. Recommend follow-up ultrasound of the liver and pancreas. Laboratory Tests Test 06/23/18 04:40 White Blood Count 5.4 x10^3/uL (4.0-11.0) Red Blood Count 3.52 x10^6/uL (3.50-5.40) Hemoglobin 11.2 g/dL (12.0-15.5) Hematocrit 33.7 % (36.0-47.0) Mean Corpuscular Volume 96 fL (79-100) Mean Corpuscular Hemoglobin 32 pg (25-35) Mean Corpuscular Hemoglobin Concent 33 g/dL (31-37) Red Cell Distribution Width 12.6 % (11.5-14.5) Platelet Count 172 x10^3/uL (140-400) Neutrophils (%) (Auto) 44 % (31-73) Lymphocytes (%) (Auto) 41 % (24-48) Monocytes (%) (Auto) 10 % (0-9) Eosinophils (%) (Auto) 4 % (0-3) Basophils (%) (Auto) 1 % (0-3) Neutrophils # (Auto) 2.4 x10^3uL (1.8-7.7) Lymphocytes # (Auto) 2.2 x10^3/uL (1.0-4.8) Monocytes # (Auto) 0.6 x10^3/uL (0.0-1.1) Eosinophils # (Auto) 0.2 x10^3/uL (0.0-0.7) Basophils # (Auto) 0.0 x10^3/uL (0.0-0.2) Sodium Level 142 mmol/L (136-145) Potassium Level 3.3 mmol/L (3.5-5.1) Chloride Level 109 mmol/L (98-107) Carbon Dioxide Level 25 mmol/L (21-32) Anion Gap 8 (6-14) Blood Urea Nitrogen 8 mg/dL (7-20) Creatinine 0.7 mg/dL (0.6-1.0) Estimated GFR (Cockcroft-Gault) 80.5 Glucose Level 96 mg/dL (70-99) Calcium Level 8.9 mg/dL (8.5-10.1) Lipase 153 U/L (73-393) Assessment and Plan Assessmemt and Plan Problems Medical Problems: (1) Acute pancreatitis Status: Acute (2) Hypertension Status: Acute Comment Review of Relevant I have reviewed the following items judson (where applicable) has been applied. Labs Laboratory Tests Test 06/22/18 08:45 06/23/18 04:40 White Blood Count 6.8 x10^3/uL (4.0-11.0) 5.4 x10^3/uL (4.0-11.0) Red Blood Count 3.95 x10^6/uL (3.50-5.40) 3.52 x10^6/uL (3.50-5.40) Hemoglobin 12.4 g/dL (12.0-15.5) 11.2 g/dL (12.0-15.5) Hematocrit 37.5 % (36.0-47.0) 33.7 % (36.0-47.0) Mean Corpuscular Volume 95 fL (79-100) 96 fL (79-100) Mean Corpuscular Hemoglobin 32 pg (25-35) 32 pg (25-35) Mean Corpuscular Hemoglobin Concent 33 g/dL (31-37) 33 g/dL (31-37) Red Cell Distribution Width 12.7 % (11.5-14.5) 12.6 % (11.5-14.5) Platelet Count 196 x10^3/uL (140-400) 172 x10^3/uL (140-400) Neutrophils (%) (Auto) 56 % (31-73) 44 % (31-73) Lymphocytes (%) (Auto) 32 % (24-48) 41 % (24-48) Monocytes (%) (Auto) 8 % (0-9) 10 % (0-9) Eosinophils (%) (Auto) 4 % (0-3) 4 % (0-3) Basophils (%) (Auto) 1 % (0-3) 1 % (0-3) Neutrophils # (Auto) 3.8 x10^3uL (1.8-7.7) 2.4 x10^3uL (1.8-7.7) Lymphocytes # (Auto) 2.2 x10^3/uL (1.0-4.8) 2.2 x10^3/uL (1.0-4.8) Monocytes # (Auto) 0.6 x10^3/uL (0.0-1.1) 0.6 x10^3/uL (0.0-1.1) Eosinophils # (Auto) 0.2 x10^3/uL (0.0-0.7) 0.2 x10^3/uL (0.0-0.7) Basophils # (Auto) 0.0 x10^3/uL (0.0-0.2) 0.0 x10^3/uL (0.0-0.2) Sodium Level 145 mmol/L (136-145) 142 mmol/L (136-145) Potassium Level 3.6 mmol/L (3.5-5.1) 3.3 mmol/L (3.5-5.1) Chloride Level 108 mmol/L (98-107) 109 mmol/L (98-107) Carbon Dioxide Level 26 mmol/L (21-32) 25 mmol/L (21-32) Anion Gap 11 (6-14) 8 (6-14) Blood Urea Nitrogen 9 mg/dL (7-20) 8 mg/dL (7-20) Creatinine 0.8 mg/dL (0.6-1.0) 0.7 mg/dL (0.6-1.0) Estimated GFR (Cockcroft-Gault) 69.0 80.5 BUN/Creatinine Ratio 11 (6-20) Glucose Level 110 mg/dL (70-99) 96 mg/dL (70-99) Calcium Level 9.2 mg/dL (8.5-10.1) 8.9 mg/dL (8.5-10.1) Total Bilirubin 0.5 mg/dL (0.2-1.0) Aspartate Amino Transf (AST/SGOT) 25 U/L (15-37) Alanine Aminotransferase (ALT/SGPT) 13 U/L (14-59) Alkaline Phosphatase 77 U/L (46-116) Total Protein 6.5 g/dL (6.4-8.2) Albumin 3.2 g/dL (3.4-5.0) Albumin/Globulin Ratio 1.0 (1.0-1.7) Lipase 174 U/L (73-393) 153 U/L (73-393) Laboratory Tests Test 06/23/18 04:40 White Blood Count 5.4 x10^3/uL (4.0-11.0) Red Blood Count 3.52 x10^6/uL (3.50-5.40) Hemoglobin 11.2 g/dL (12.0-15.5) Hematocrit 33.7 % (36.0-47.0) Mean Corpuscular Volume 96 fL (79-100) Mean Corpuscular Hemoglobin 32 pg (25-35) Mean Corpuscular Hemoglobin Concent 33 g/dL (31-37) Red Cell Distribution Width 12.6 % (11.5-14.5) Platelet Count 172 x10^3/uL (140-400) Neutrophils (%) (Auto) 44 % (31-73) Lymphocytes (%) (Auto) 41 % (24-48) Monocytes (%) (Auto) 10 % (0-9) Eosinophils (%) (Auto) 4 % (0-3) Basophils (%) (Auto) 1 % (0-3) Neutrophils # (Auto) 2.4 x10^3uL (1.8-7.7) Lymphocytes # (Auto) 2.2 x10^3/uL (1.0-4.8) Monocytes # (Auto) 0.6 x10^3/uL (0.0-1.1) Eosinophils # (Auto) 0.2 x10^3/uL (0.0-0.7) Basophils # (Auto) 0.0 x10^3/uL (0.0-0.2) Sodium Level 142 mmol/L (136-145) Potassium Level 3.3 mmol/L (3.5-5.1) Chloride Level 109 mmol/L (98-107) Carbon Dioxide Level 25 mmol/L (21-32) Anion Gap 8 (6-14) Blood Urea Nitrogen 8 mg/dL (7-20) Creatinine 0.7 mg/dL (0.6-1.0) Estimated GFR (Cockcroft-Gault) 80.5 Glucose Level 96 mg/dL (70-99) Calcium Level 8.9 mg/dL (8.5-10.1) Lipase 153 U/L (73-393) Microbiology 06/21/18 Blood Culture - Preliminary, Resulted NO GROWTH AFTER 2 DAYS 06/20/18 Urine Culture - Preliminary, Resulted 06/20/18 Urine Culture Result 1 ([place]) - Preliminary, Resulted Medications Current Medications Famotidine (Pepcid Vial) 20 mg 1X ONCE IVP Last administered on 06/20/18 18:06; Start 06/20/18 at 17:45; Stop 06/20/18 at 17:46; Status DC Ondansetron HCl (Zofran) 4 mg 1X ONCE IV Last administered on 06/20/18at 18:06; Start 06/20/18 at 17:45; Stop 06/20/18 at 17:46; Status DC Sodium Chloride 1,000 ml @ 1,000 mls/hr 1X ONCE IV Last administered on 06/20/18at 18:05; Start 06/20/18 at 17:45; Stop 06/20/18 at 18:44; Status DC Iohexol (Omnipaque 300 Mg/ml) 75 ml 1X ONCE IV Last administered on 06/20/18at 19:00; Start 06/20/18 at 18:00; Stop 06/20/18 at 18:01; Status DC Info (CONTRAST GIVEN -- Rx MONITORING) 1 each PRN DAILY PRN MC SEE COMMENTS; Start 06/20/18 at 18:00; Stop 06/22/18 at 17:59; Status DC Ondansetron HCl (Zofran) 4 mg PRN Q8HRS PRN IV NAUSEA/VOMITING; Start 06/20/18 at 19:30; Stop 06/21/18 at 19:29; Status DC Fentanyl Citrate (Fentanyl 2ml Vial) 50 mcg PRN Q1HR PRN IV PAIN; Start 06/20/18 at 19:30; Stop 06/21/18 at 19:29; Status DC Sodium Chloride 1,000 ml @ 125 mls/hr 1X ONCE IV Last administered on 06/20/18at 19:40; Start 06/20/18 at 19:30; Stop 06/21/18 at 03:29; Status DC Ceftriaxone Sodium (Rocephin) 1 gm 1X ONCE IVP Last administered on 06/20/18at 19:38; Start 06/20/18 at 20:00; Stop 06/20/18 at 20:01; Status DC Ceftriaxone Sodium (Rocephin) 1 gm Q24H IVP Last administered on 06/22/18at 20:55; Start 06/21/18 at 20:00 Sodium Chloride 1,000 ml @ 100 mls/hr 1X ONCE IV Last administered on 06/20/18at 23:43; Start 06/20/18 at 21:00; Stop 06/21/18 at 06:59; Status DC Aspirin (Children'S Aspirin) 81 mg DAILY PO Last administered on 06/23/18at 08:37; Start 06/21/18 at 09:00 Losartan Potassium (Cozaar) 25 mg DAILY PO ; Start 06/21/18 at 09:00; Stop 06/21/18 at 09:00; Status DC Metoprolol Succinate (Toprol Xl) 25 mg DAILYWSUP PO ; Start 06/20/18 at 21:30; Stop 06/20/18 at 23:06; Status DC Ascorbic Acid (Vitamin C) 500 mg DAILY PO ; Start 06/21/18 at 09:00; Stop 06/21/18 at 09:00; Status DC Non-Formulary Medication (Selegiline Hcl ) 5 mg BID PO ; Start 06/20/18 at 21:00; Stop 06/20/18 at 23:06; Status DC Non-Formulary Medication (Ubidecarenone (Co Q-10)) 10 mg BID PO ; Start 06/20/18 at 21:00; Status UNV Non-Formulary Medication ([misce] ) 400 mg HS PO ; Start 06/20/18 at 21:00; Stop 06/20/18 at 23:06; Status DC Enoxaparin Sodium (Lovenox Per Pharmacy Prophylaxis Dosing) 1 each PRN DAILY PRN MC SEE COMMENTS; Start 06/20/18 at 22:00 Enoxaparin Sodium (Lovenox 40mg Syringe) 40 mg Q24H SQ Last administered on 06/22/18at 21:02; Start 06/20/18 at 22:00 Losartan Potassium (Cozaar) 100 mg DAILY PO Last administered on 06/23/18at 08:37; Start 06/21/18 at 09:00 Buspirone HCl (Buspar) 5 mg Q8HRS PO Last administered on 06/23/18at 06:07; Start 06/21/18 at 00:00 Docusate Sodium (Colace) 100 mg PRN QHS PRN PO CONSTIPATION 1ST CHOICE; Start 06/20/18 at 23:15 Metoprolol Tartrate (Lopressor) 50 mg BID PO Last administered on 06/23/18at 08:37; Start 06/21/18 at 00:00 Trazodone HCl (Desyrel) 50 mg QHS PO Last administered on 06/22/18at 20:55; Start 06/21/18 at 00:00 Acetaminophen (Tylenol) 500 mg PRN Q4HRS PRN PO MILD PAIN / TEMP; Start 06/20/18 at 23:15 Bisacodyl (Dulcolax Supp) 10 mg PRN DAILY PRN [place] CONSTIPATION 2ND CHOICE; Start 06/20/18 at 23:15 Calcium Carbonate/ Glycine (Tums) 500 mg PRN Q4HRS PRN PO INDIGESTION; Start 06/20/18 at 23:15 Loperamide HCl (Imodium) 2 mg PRN Q2HRS PRN PO DIARRHEA; Start 06/20/18 at 23:15 Multi-Ingredient Ointment (Analgesic [place]) 1 myranda QID TP Last administered on 06/22/18at 20:56; Start 06/21/18 at 00:00 Lactobacillus Rhamnosus (Culturelle) 1 cap BID PO Last administered on 06/23/18at 08:37; Start 06/21/18 at 09:00 Sodium Chloride 1,000 ml @ 75 mls/hr [id number] IV Last administered on 06/23/18at 01:50; Start 06/22/18 at 12:30 Active Scripts Active Reported Biofreeze (Menthol) 118 Ml Gel..ml. 118 Ml TP QID Trazodone Hcl 50 Mg Tablet 1 Tab PO QHS Buspirone Hcl 5 Mg Tablet 1 Tab PO Q8HRS Metoprolol Tartrate 50 Mg Tablet 1 Tab PO BID Imodium A-D (Loperamide HCl) 2 Mg Capsule 2 Mg PO Q2HR PRN Tums (Calcium Carbonate) 300 Mg Tab.chew 500 Mg PO Q4HRS PRN Bisacodyl 10 Mg Supp.rect 10 Mg RC PRN Q24HRS PRN Colace (Docusate Sodium) 100 Mg Capsule 1 Cap PO QHS PRN Tylenol Extra Strength (Acetaminophen) 500 Mg Tablet 500 Mg PO Q4HRS PRN Losartan Potassium (Losartan Potassium) 25 Mg Tablet 100 Mg PO DAILY Aspirin 81 Mg Tab.chew 1 Tab PO DAILY Vitals/I & O Vital Sign - Last 24 Hours 06/22/18 06/22/18 06/22/18 06/22/18 11:00 15:00 15:00 19:00 Temp 99.3 99.6 99.6 99.5 99.3 99.6 99.6 99.5 Pulse 73 78 78 79 Resp 18 20 16 18 B/P (MAP) 168/64 (98) 171/87 (115) 171/87 (115) 170/84 (112) Pulse Ox 94 94 98 93 O2 Delivery Nasal Cannula Room Air Room Air Room Air 06/22/18 06/22/18 06/22/18 06/23/18 20:04 20:55 23:00 03:00 Temp 97.9 99.0 97.9 99.0 Pulse 79 60 64 Resp 20 18 B/P (MAP) 170/84 136/71 (92) 146/84 (104) Pulse Ox 94 93 O2 Delivery Room Air Room Air Room Air 06/23/18 06/23/18 06/23/18 06/23/18 07:00 08:30 08:37 08:37 Temp 98.7 98.7 Pulse 64 64 64 Resp 18 B/P (MAP) 144/83 (103) 144/83 144/83 Pulse Ox 93 O2 Delivery Room Air Room Air 06/23/18 10:51 Temp 98.4 98.4 Pulse 70 Resp 18 B/P (MAP) 177/81 (113) Pulse Ox 96 O2 Delivery Room Air Intake and Output 06/22/18 06/22/18 06/23/18 14:59 22:59 06:59 Intake Total 580 ml 1000 ml Output Total 200 ml Balance 580 ml 800 ml KENYA NATARAJAN MD Jun 23, 2018 10:55
--- NOTE | 2018-06-23 11:07 | NUR ---
SW following pt for anticipated dc needs. Chart reviewed. LEONIDAS confirmed with Charo pt is a resident at [facility]. LEONIDAS faxed updated clinicals to [facility]. Pt is dependent with ADL's and no skilled intervention needed at this time.
[2018-06-23] MEDS ORDERED: POTASSIUM CHLORIDE 20 MEQ TABLET.ER. PO ONE (13:15)
[2018-06-23 15:00] VITALS: BP 161/64
--- NOTE | 2018-06-23 16:56 | NUR ---
Wound Care Wound care consult for blackened toe nail. Pt states it is from trauma a while ago. Nail is growing out well, no open wound noted or signs of infection at this time. WC will sign off at this time, please reconsult if new wounds develop.
[2018-06-23 19:00] VITALS: BP 166/81
[2018-06-23] MEDS: cefTRIAXone IV Push 1 GM VIAL. IVP SCH (20:49)
[2018-06-23] MEDS: traZODone 50 MG TABLET. PO SCH (20:51)
[2018-06-23] MEDS: ENOXAPARIN 40 MG/0.4 ML SYRINGE. SQ SCH (20:57)
[2018-06-23 23:00] VITALS: BP 154/85
[2018-06-24 02:43] VITALS: BP 173/89
[2018-06-24] MEDS: IV NORMAL SALINE 1000ML BAG 1,000 ML IV SCH (04:30)
[2018-06-24 04:59] LABS: BASO % 1 % (0-3); EOS # 0.3 x10^3/uL (0.0-0.7); EOS % 5 % (0-3); HEMATOCRIT 34.4 % (36.0-47.0); HEMOGLOBIN 11.4 g/dL (12.0-15.5); LYMPH # 2.5 x10^3/uL (1.0-4.8); LYMPH % 42 % (24-48); MEAN CORPUSCULAR HEMOGLOBIN 32 pg (25-35); MEAN CORPUSCULAR HGB CONC 33 g/dL (31-37); MEAN CORPUSCULAR VOLUME 96 fL (79-100); MONO # 0.6 x10^3/uL (0.0-1.1); MONO % 10 % (0-9); NEUT # 2.5 x10^3uL (1.8-7.7); NEUT % 42 % (31-73); PLATELET COUNT 183 x10^3/uL (140-400); RED BLOOD COUNT 3.59 x10^6/uL (3.50-5.40); RED CELL DISTRIBUTION WIDTH 12.6 % (11.5-14.5)
[2018-06-24 05:17] LABS: CREATININE 0.6 mg/dL (0.6-1.0); GFR 96.2; POTASSIUM 3.4 mmol/L (3.5-5.1)
[2018-06-24 07:00] VITALS: BP 175/85
[2018-06-24] MEDS: busPIRone 5 MG TABLET. PO SCH (07:16)
[2018-06-24] MEDS ORDERED: POTASSIUM CHLORIDE 20 MEQ TABLET.ER. PO SCH (08:00)
--- NOTE | 2018-06-24 08:03 | RAD ---
Right upper quadrant abdominal ultrasound, 06/24/2018: HISTORY: Abnormal CT The gallbladder is within normal limits in size. It contains echogenic material with equivocal posterior acoustic shadowing. The findings suggest gallstones versus tumefactive sludge. The gallbladder wall measures 2-3 mm. The common hepatic duct measures 4 mm which is within normal limits. Several cysts are identified in the liver. The largest of these lies anteriorly in the left lobe and measures 3.2 cm. There is a lobulated cystic appearing process in the pancreatic head measuring approximately 3 x 2.5 x 1.5 cm. no internal color flow is seen. The pancreatic duct in the pancreatic body is mildly dilated measuring 3-4 mm. No solid pancreatic mass is seen. There is mild right renal cortical scarring. The right kidney is otherwise unremarkable. IMPRESSION: 1. Gallstones versus tumefactive sludge. 2. Multiple hepatic cysts. 3. Cystic mass versus focal ductal dilatation in the pancreatic head. Intraductal papillary mucinous neoplasm is a possibility. 4. Mild dilatation of the remainder of the pancreatic duct. Electronically signed by: Cornelio Gonzalez MD (06/24/2018 7:59 AM) [facility]
--- NOTE | 2018-06-24 09:26 | PDOC ---
Subjective: Subjective: Denies n/v and abd pain. Doesn't remember if her son visited yesterday. Wants to go home. Objective: Vital Signs: Vital Signs Date Time Temp Pulse Resp B/P (MAP) Pulse Ox O2 Delivery O2 Flow Rate FiO2 06/24/18 07:00 98.5 68 18 175/85 (115) 93 Room Air 98.5 Labs: Laboratory Tests Test 06/24/18 04:15 White Blood Count 6.0 x10^3/uL Red Blood Count 3.59 x10^6/uL Hemoglobin 11.4 g/dL Hematocrit 34.4 % Mean Corpuscular Volume 96 fL Mean Corpuscular Hemoglobin 32 pg Mean Corpuscular Hemoglobin Concent 33 g/dL Red Cell Distribution Width 12.6 % Platelet Count 183 x10^3/uL Neutrophils (%) (Auto) 42 % Lymphocytes (%) (Auto) 42 % Monocytes (%) (Auto) 10 % Eosinophils (%) (Auto) 5 % Basophils (%) (Auto) 1 % Neutrophils # (Auto) 2.5 x10^3uL Lymphocytes # (Auto) 2.5 x10^3/uL Monocytes # (Auto) 0.6 x10^3/uL Eosinophils # (Auto) 0.3 x10^3/uL Basophils # (Auto) 0.0 x10^3/uL Sodium Level 142 mmol/L Potassium Level 3.4 mmol/L Chloride Level 108 mmol/L Carbon Dioxide Level 25 mmol/L Anion Gap 9 Blood Urea Nitrogen 7 mg/dL Creatinine 0.6 mg/dL Estimated GFR (Cockcroft-Gault) 96.2 Glucose Level 94 mg/dL Calcium Level 9.0 mg/dL Imaging: Abd US 06/23 IMPRESSION: 1. Gallstones versus tumefactive sludge. 2. Multiple hepatic cysts. 3. Cystic mass versus focal ductal dilatation in the pancreatic head. Intraductal papillary mucinous neoplasm is a possibility. 4. Mild dilatation of the remainder of the pancreatic duct. PE: GEN: NAD - was sleeping LUNGS: CTAB HEART: RRR ABD: NABS, S/ND/NT NEURO/PSYCH: pleasantly confused A/P: UTI, dementia N/v - resolved Abnormal pancreas imaging, gallstones vs sludge, hepatic cysts -- Family does not desire further workup at this time. If additional testing desires in the future, would pursue CA19-9, MRCP, and/or EUS. DC per primary - d/w RN. MARY JO CASTILLO Jun 24, 2018 09:26
[2018-06-24] MEDS: LACTOBACILLUS RHAMNOSUS GG 1 CAPSULE. PO SCH (09:45)
[2018-06-24] MEDS: LOSARTAN POTASSIUM 50 MG TABLET. PO SCH (09:46)
[2018-06-24] MEDS: METOPROLOL TART IMMED RELEASE 50 MG TABLET. PO SCH (09:47)
[2018-06-24] MEDS: ASPIRIN CHEWABLE 81 MG TABLET. PO SCH (09:47)
[2018-06-24 11:00] VITALS: BP 190/79
--- NOTE | 2018-06-24 12:38 | PDOC ---
PROGRESS NOTES Chief Complaint Chief Complaint nausea, vomiting History of Present Illness History of Present Illness Patient resting comfortably in bed, nausea and vomiting improved. Appears to be lucid but when asked it is the year 1949 and Jhonatan is president. Dilated pancreatic duct. This is of uncertain chronicity. Recommend follow-up ultrasound of the liver and pancreas, ORDERED. Cystic mass versus focal ductal dilatation in the pancreatic head. Intraductal papillary mucinous neoplasm is a possibility. Mild dilatation of the remainder of the pancreatic duct. HYPOKALEMIA, REPLACED GI CONSULTED FAMILY DECLINED WORK-UP OF ABN SONO POSSIBLE TUMOR Vitals Vitals Vital Signs Date Time Temp Pulse Resp B/P (MAP) Pulse Ox O2 Delivery O2 Flow Rate FiO2 06/24/18 11:00 98.4 71 18 190/79 (116) 92 Room Air 98.4 Physical Exam Physical Exam Physical Exam General: Alert, Cooperative, No acute distress HEENT: Atraumatic, PERRLA, Mucous membranes. moist/pink Lungs: Normal air movement Heart: no murmurs Abdomen: Normal bowel sounds, Soft Extremities: No edema, Normal pulses Neuro: Normal tone, Sensation intact Psych/Mental Status: (withdrawn, not oriented, poor recall) General: Alert, Cooperative, No acute distress, mild distress, Other (Oriented x1) Heart: Regular rate, Normal S1, Normal S2, No murmurs Lungs: Clear, Crackles Abdomen: Normal bowel sounds, Soft, No tenderness Extremities: No cyanosis, No edema, Normal pulses Labs LABS PATIENT: BENOIT AVZ ACCOUNT: [id number] : 1935 LOCATION: [address] [place] [address] AGE: 82 SEX: F EXAM STATUS: ADM IN ORD. PHYSICIAN: MARY JO CASTILLO REASON: hepatic lesions and dilated PD on CT - US recommended PROCEDURE: ABDOMEN LTD Right upper quadrant abdominal ultrasound, 06/24/2018: HISTORY: Abnormal CT The gallbladder is within normal limits in size. It contains echogenic material with equivocal posterior acoustic shadowing. The findings suggest gallstones versus tumefactive sludge. The gallbladder wall measures 2-3 mm. The common hepatic duct measures 4 mm which is within normal limits. Several cysts are identified in the liver. The largest of these lies anteriorly in the left lobe and measures 3.2 cm. There is a lobulated cystic appearing process in the pancreatic head measuring approximately 3 x 2.5 x 1.5 cm. no internal color flow is seen. The pancreatic duct in the pancreatic body is mildly dilated measuring 3-4 mm. No solid pancreatic mass is seen. There is mild right renal cortical scarring. The right kidney is otherwise unremarkable. IMPRESSION: 1. Gallstones versus tumefactive sludge. 2. Multiple hepatic cysts. 3. Cystic mass versus focal ductal dilatation in the pancreatic head. Intraductal papillary mucinous neoplasm is a possibility. 4. Mild dilatation of the remainder of the pancreatic duct. Electronically signed by: Cornelio Gonzalez MD (06/24/2018 7:59 AM) [facility] Laboratory Tests Test 06/24/18 04:15 White Blood Count 6.0 x10^3/uL (4.0-11.0) Red Blood Count 3.59 x10^6/uL (3.50-5.40) Hemoglobin 11.4 g/dL (12.0-15.5) Hematocrit 34.4 % (36.0-47.0) Mean Corpuscular Volume 96 fL (79-100) Mean Corpuscular Hemoglobin 32 pg (25-35) Mean Corpuscular Hemoglobin Concent 33 g/dL (31-37) Red Cell Distribution Width 12.6 % (11.5-14.5) Platelet Count 183 x10^3/uL (140-400) Neutrophils (%) (Auto) 42 % (31-73) Lymphocytes (%) (Auto) 42 % (24-48) Monocytes (%) (Auto) 10 % (0-9) Eosinophils (%) (Auto) 5 % (0-3) Basophils (%) (Auto) 1 % (0-3) Neutrophils # (Auto) 2.5 x10^3uL (1.8-7.7) Lymphocytes # (Auto) 2.5 x10^3/uL (1.0-4.8) Monocytes # (Auto) 0.6 x10^3/uL (0.0-1.1) Eosinophils # (Auto) 0.3 x10^3/uL (0.0-0.7) Basophils # (Auto) 0.0 x10^3/uL (0.0-0.2) Sodium Level 142 mmol/L (136-145) Potassium Level 3.4 mmol/L (3.5-5.1) Chloride Level 108 mmol/L (98-107) Carbon Dioxide Level 25 mmol/L (21-32) Anion Gap 9 (6-14) Blood Urea Nitrogen 7 mg/dL (7-20) Creatinine 0.6 mg/dL (0.6-1.0) Estimated GFR (Cockcroft-Gault) 96.2 Glucose Level 94 mg/dL (70-99) Calcium Level 9.0 mg/dL (8.5-10.1) Assessment and Plan Assessmemt and Plan Problems Medical Problems: (1) Acute pancreatitis Status: Acute (2) Hypertension Status: Acute Comment Review of Relevant I have reviewed the following items judson (where applicable) has been applied. Labs Laboratory Tests Test 06/23/18 04:40 06/24/18 04:15 White Blood Count 5.4 x10^3/uL (4.0-11.0) 6.0 x10^3/uL (4.0-11.0) Red Blood Count 3.52 x10^6/uL (3.50-5.40) 3.59 x10^6/uL (3.50-5.40) Hemoglobin 11.2 g/dL (12.0-15.5) 11.4 g/dL (12.0-15.5) Hematocrit 33.7 % (36.0-47.0) 34.4 % (36.0-47.0) Mean Corpuscular Volume 96 fL (79-100) 96 fL (79-100) Mean Corpuscular Hemoglobin 32 pg (25-35) 32 pg (25-35) Mean Corpuscular Hemoglobin Concent 33 g/dL (31-37) 33 g/dL (31-37) Red Cell Distribution Width 12.6 % (11.5-14.5) 12.6 % (11.5-14.5) Platelet Count 172 x10^3/uL (140-400) 183 x10^3/uL (140-400) Neutrophils (%) (Auto) 44 % (31-73) 42 % (31-73) Lymphocytes (%) (Auto) 41 % (24-48) 42 % (24-48) Monocytes (%) (Auto) 10 % (0-9) 10 % (0-9) Eosinophils (%) (Auto) 4 % (0-3) 5 % (0-3) Basophils (%) (Auto) 1 % (0-3) 1 % (0-3) Neutrophils # (Auto) 2.4 x10^3uL (1.8-7.7) 2.5 x10^3uL (1.8-7.7) Lymphocytes # (Auto) 2.2 x10^3/uL (1.0-4.8) 2.5 x10^3/uL (1.0-4.8) Monocytes # (Auto) 0.6 x10^3/uL (0.0-1.1) 0.6 x10^3/uL (0.0-1.1) Eosinophils # (Auto) 0.2 x10^3/uL (0.0-0.7) 0.3 x10^3/uL (0.0-0.7) Basophils # (Auto) 0.0 x10^3/uL (0.0-0.2) 0.0 x10^3/uL (0.0-0.2) Sodium Level 142 mmol/L (136-145) 142 mmol/L (136-145) Potassium Level 3.3 mmol/L (3.5-5.1) 3.4 mmol/L (3.5-5.1) Chloride Level 109 mmol/L (98-107) 108 mmol/L (98-107) Carbon Dioxide Level 25 mmol/L (21-32) 25 mmol/L (21-32) Anion Gap 8 (6-14) 9 (6-14) Blood Urea Nitrogen 8 mg/dL (7-20) 7 mg/dL (7-20) Creatinine 0.7 mg/dL (0.6-1.0) 0.6 mg/dL (0.6-1.0) Estimated GFR (Cockcroft-Gault) 80.5 96.2 Glucose Level 96 mg/dL (70-99) 94 mg/dL (70-99) Calcium Level 8.9 mg/dL (8.5-10.1) 9.0 mg/dL (8.5-10.1) Lipase 153 U/L (73-393) Laboratory Tests Test 06/24/18 04:15 White Blood Count 6.0 x10^3/uL (4.0-11.0) Red Blood Count 3.59 x10^6/uL (3.50-5.40) Hemoglobin 11.4 g/dL (12.0-15.5) Hematocrit 34.4 % (36.0-47.0) Mean Corpuscular Volume 96 fL (79-100) Mean Corpuscular Hemoglobin 32 pg (25-35) Mean Corpuscular Hemoglobin Concent 33 g/dL (31-37) Red Cell Distribution Width 12.6 % (11.5-14.5) Platelet Count 183 x10^3/uL (140-400) Neutrophils (%) (Auto) 42 % (31-73) Lymphocytes (%) (Auto) 42 % (24-48) Monocytes (%) (Auto) 10 % (0-9) Eosinophils (%) (Auto) 5 % (0-3) Basophils (%) (Auto) 1 % (0-3) Neutrophils # (Auto) 2.5 x10^3uL (1.8-7.7) Lymphocytes # (Auto) 2.5 x10^3/uL (1.0-4.8) Monocytes # (Auto) 0.6 x10^3/uL (0.0-1.1) Eosinophils # (Auto) 0.3 x10^3/uL (0.0-0.7) Basophils # (Auto) 0.0 x10^3/uL (0.0-0.2) Sodium Level 142 mmol/L (136-145) Potassium Level 3.4 mmol/L (3.5-5.1) Chloride Level 108 mmol/L (98-107) Carbon Dioxide Level 25 mmol/L (21-32) Anion Gap 9 (6-14) Blood Urea Nitrogen 7 mg/dL (7-20) Creatinine 0.6 mg/dL (0.6-1.0) Estimated GFR (Cockcroft-Gault) 96.2 Glucose Level 94 mg/dL (70-99) Calcium Level 9.0 mg/dL (8.5-10.1) Microbiology 06/21/18 Blood Culture - Preliminary, Resulted NO GROWTH AFTER 3 DAYS 06/20/18 Urine Culture - Final, Complete 06/20/18 Urine Culture Result 1 ([place]) - Final, Complete 06/20/18 Antimicrobic Susceptibility - Final, Complete Medications Current Medications Famotidine (Pepcid Vial) 20 mg 1X ONCE IVP Last administered on 06/20/18at 18:06; Start 06/20/18 at 17:45; Stop 06/20/18 at 17:46; Status DC Ondansetron HCl (Zofran) 4 mg 1X ONCE IV Last administered on 06/20/18at 18:06; Start 06/20/18 at 17:45; Stop 06/20/18 at 17:46; Status DC Sodium Chloride 1,000 ml @ 1,000 mls/hr 1X ONCE IV Last administered on 06/20/18at 18:05; Start 06/20/18 at 17:45; Stop 06/20/18 at 18:44; Status DC Iohexol (Omnipaque 300 Mg/ml) 75 ml 1X ONCE IV Last administered on 06/20/18at 19:00; Start 06/20/18 at 18:00; Stop 06/20/18 at 18:01; Status DC Info (CONTRAST GIVEN -- Rx MONITORING) 1 each PRN DAILY PRN MC SEE COMMENTS; Start 06/20/18 at 18:00; Stop 06/22/18 at 17:59; Status DC Ondansetron HCl (Zofran) 4 mg PRN Q8HRS PRN IV NAUSEA/VOMITING; Start 06/20/18 at 19:30; Stop 06/21/18 at 19:29; Status DC Fentanyl Citrate (Fentanyl 2ml Vial) 50 mcg PRN Q1HR PRN IV PAIN; Start 06/20/18 at 19:30; Stop 06/21/18 at 19:29; Status DC Sodium Chloride 1,000 ml @ 125 mls/hr 1X ONCE IV Last administered on 06/20/18at 19:40; Start 06/20/18 at 19:30; Stop 06/21/18 at 03:29; Status DC Ceftriaxone Sodium (Rocephin) 1 gm 1X ONCE IVP Last administered on 06/20/18at 19:38; Start 06/20/18 at 20:00; Stop 06/20/18 at 20:01; Status DC Ceftriaxone Sodium (Rocephin) 1 gm Q24H IVP Last administered on 06/23/18at 20:49; Start 06/21/18 at 20:00 Sodium Chloride 1,000 ml @ 100 mls/hr 1X ONCE IV Last administered on 06/20/18at 23:43; Start 06/20/18 at 21:00; Stop 06/21/18 at 06:59; Status DC Aspirin (Children'S Aspirin) 81 mg DAILY PO Last administered on 06/24/18at 09:47; Start 06/21/18 at 09:00 Losartan Potassium (Cozaar) 25 mg DAILY PO ; Start 06/21/18 at 09:00; Stop 06/21/18 at 09:00; Status DC Metoprolol Succinate (Toprol Xl) 25 mg DAILYWSUP PO ; Start 06/20/18 at 21:30; Stop 06/20/18 at 23:06; Status DC Ascorbic Acid (Vitamin C) 500 mg DAILY PO ; Start 06/21/18 at 09:00; Stop at 09:00; Status DC Non-Formulary Medication (Selegiline Hcl ) 5 mg BID PO ; Start 06/20/18 at 21:00; Stop 06/20/18 at 23:06; Status DC Non-Formulary Medication (Ubidecarenone (Co Q-10)) 10 mg BID PO ; Start 06/20/18 at 21:00; Status UNV Non-Formulary Medication ([misce] ) 400 mg HS PO ; Start 06/20/18 at 21:00; Stop 06/20/18 at 23:06; Status DC Enoxaparin Sodium (Lovenox Per Pharmacy Prophylaxis Dosing) 1 each PRN DAILY PRN MC SEE COMMENTS; Start 06/20/18 at 22:00 Enoxaparin Sodium (Lovenox 40mg Syringe) 40 mg Q24H SQ Last administered on 06/22/18at 21:02; Start 06/20/18 at 22:00 Losartan Potassium (Cozaar) 100 mg DAILY PO Last administered on 06/24/18at 09:46; Start 06/21/18 at 09:00 Buspirone HCl (Buspar) 5 mg Q8HRS PO Last administered on 06/24/18at 07:16; Start 06/21/18 at 00:00 Docusate Sodium (Colace) 100 mg PRN QHS PRN PO CONSTIPATION 1ST CHOICE; Start 06/20/18 at 23:15 Metoprolol Tartrate (Lopressor) 50 mg BID PO Last administered on 06/24/18 09:47; Start 06/21/18 at 00:00 Trazodone HCl (Desyrel) 50 mg QHS PO Last administered on 06/23/18 20:51; Start 06/21/18 at 00:00 Acetaminophen (Tylenol) 500 mg PRN Q4HRS PRN PO MILD PAIN / TEMP; Start 06/20/18 at 23:15 Bisacodyl (Dulcolax Supp) 10 mg PRN DAILY PRN [place] CONSTIPATION 2ND CHOICE; St art 06/20/18 at 23:15 Calcium Carbonate/ Glycine (Tums) 500 mg PRN Q4HRS PRN PO INDIGESTION; Start 06/20/18 at 23:15 Loperamide HCl (Imodium) 2 mg PRN Q2HRS PRN PO DIARRHEA; Start 06/20/18 at 23:15 Multi-Ingredient Ointment (Analgesic [place]) 1 myranda QID TP Last administered on 06/22/18 20:56; Start 06/21/18 at 00:00 Lactobacillus Rhamnosus (Culturelle) 1 cap BID PO Last administered on 06/24/18at 09:45; Start 06/21/18 at 09:00 Sodium Chloride 1,000 ml @ 75 mls/hr [id number] IV Last administered on 06/24/18 04:30; Start 06/22/18 at 12:30 Potassium Chloride (Klor-Con) 40 meq 1X ONCE PO Last administered on 06/23/18 13:34; Start 06/23/18 at 13:15; Stop 06/23/18 at 13:23; Status DC Potassium Chloride (Klor-Con) 20 meq DAILYWBKFT PO Last administered on 06/24 09:44; Start 06/24/18 at 08:00 Active Scripts Active Reported Biofreeze (Menthol) 118 Ml Gel..ml. 118 Ml TP QID Trazodone Hcl 50 Mg Tablet 1 Tab PO QHS Buspirone Hcl 5 Mg Tablet 1 Tab PO Q8HRS Metoprolol Tartrate 50 Mg Tablet 1 Tab PO BID Imodium A-D (Loperamide HCl) 2 Mg Capsule 2 Mg PO Q2HR PRN Tums (Calcium Carbonate) 300 Mg Tab.chew 500 Mg PO Q4HRS PRN Bisacodyl 10 Mg Supp.rect 10 Mg RC PRN Q24HRS PRN Colace (Docusate Sodium) 100 Mg Capsule 1 Cap PO QHS PRN Tylenol Extra Strength (Acetaminophen) 500 Mg Tablet 500 Mg PO Q4HRS PRN Losartan Potassium (Losartan Potassium) 25 Mg Tablet 100 Mg PO DAILY Aspirin 81 Mg Tab.chew 1 Tab PO DAILY Vitals/I & O Vital Sign - Last 24 Hours 06/23/18 06/23/18 06/23/18 06/23/18 15:00 19:00 20:00 20:52 Temp 98.3 97.4 98.3 97.4 Pulse 73 75 75 Resp 20 16 B/P (MAP) 161/64 (96) 166/81 (109) 166/81 Pulse Ox 95 94 O2 Delivery Room Air Room Air Room Air 06/23/18 06/24/18 06/24/18 06/24/18 23:00 02:43 07:00 09:46 Temp 98.8 97.8 98.5 98.8 97.8 98.5 Pulse 64 65 68 68 Resp 16 15 18 B/P (MAP) 154/85 (108) 173/89 (117) 175/85 (115) 175/85 Pulse Ox 94 96 93 O2 Delivery Room Air Room Air Room Air 06/24/18 06/24/18 09:47 11:00 Temp 98.4 98.4 Pulse 68 71 Resp 18 B/P (MAP) 175/85 190/79 (116) Pulse Ox 92 O2 Delivery Room Air Intake and Output 06/23/18 06/23/18 06/24/18 15:00 23:00 07:00 Intake Total 200 ml 100 ml Output Total 1050 ml 1100 ml Balance 200 ml -950 ml -1100 ml KENYA NATARAJAN MD Jun 24, 2018 12:38
--- NOTE | 2018-06-24 14:34 | PDOC3 ---
Discharge Summary Date of Admission: Jun 20, 2018 Date of Discharge: Jun 24, 2018 Follow-Up: 3-5 days Admitting Diagnosis comment: DISCHARGE DX Chief Complaint nausea, vomiting PANCREATIC MASS gallstones versus tumefactive sludge. History of Present Illness History of Present Illness Patient resting comfortably in bed, nausea and vomiting improved. Appears CONFUSED AT BASELINE. Dilated pancreatic duct. This is of uncertain chronicity. Recommend follow-up ultrasound of the liver and pancreas, ORDERED. Cystic mass versus focal ductal dilatation in the pancreatic head. Intraductal papillary mucinous neoplasm is a possibility. Mild dilatation of the remainder of the pancreatic duct. HYPOKALEMIA, REPLACED GI CONSULTED FAMILY DECLINED WORK-UP OF ABN SONO POSSIBLE TUMOR Vitals Vitals Vital Signs Date Time Temp Pulse Resp B/P (MAP) Pulse Ox O2 Delivery O2 Flow Rate FiO2 06/24/18 11:00 98.4 71 18 190/79 (116) 92 Room Air 98.4 Physical Exam Physical Exam Physical Exam General: Alert, Cooperative, No acute distress HEENT: Atraumatic, PERRLA, Mucous membranes. moist/pink Lungs: Normal air movement Heart: no murmurs Abdomen: Normal bowel sounds, Soft Extremities: No edema, Normal pulses Neuro: Normal tone, Sensation intact Psych/Mental Status: (withdrawn, not oriented, poor recall) General: Alert, Cooperative, No acute distress, mild distress, Other (Oriented x1) Heart: Regular rate, Normal S1, Normal S2, No murmurs Lungs: Clear, Crackles Abdomen: Normal bowel sounds, Soft, No tenderness Extremities: No cyanosis, No edema, Normal pulses Labs LABS PATIENT: BENOIT VAZ ACCOUNT: [id number] : 1935 LOCATION: [address] [place] [address] AGE: 82 SEX: F EXAM STATUS: ADM IN ORD. PHYSICIAN: MARY JO CASTILLO REASON: hepatic lesions and dilated PD on CT - US recommended PROCEDURE: ABDOMEN LTD Right upper quadrant abdominal ultrasound, 06/24/2018: HISTORY: Abnormal CT The gallbladder is within normal limits in size. It contains echogenic material with equivocal posterior acoustic shadowing. The findings suggest gallstones versus tumefactive sludge. The gallbladder wall measures 2-3 mm. The common hepatic duct measures 4 mm which is within normal limits. Several cysts are identified in the liver. The largest of these lies anteriorly in the left lobe and measures 3.2 cm. There is a lobulated cystic appearing process in the pancreatic head measuring approximately 3 x 2.5 x 1.5 cm. no internal color flow is seen. The pancreatic duct in the pancreatic body is mildly dilated measuring 3-4 mm. No solid pancreatic mass is seen. There is mild right renal cortical scarring. The right kidney is otherwise unremarkable. IMPRESSION: 1. Gallstones versus tumefactive sludge. 2. Multiple hepatic cysts. 3. Cystic mass versus focal ductal dilatation in the pancreatic head. Intraductal papillary mucinous neoplasm is a possibility. 4. Mild dilatation of the remainder of the pancreatic duct. FINAL DIAGNOSIS Problems Medical Problems: (1) Acute pancreatitis Status: Acute (2) Hypertension Status: Acute Brief Hospital Course Ms. Vaz is a 82 old [sex] who presented with [ ] CONDITION AT DISCHARGE: Comment (GUARDED) Discharge Medications Current Medications Famotidine (Pepcid Vial) 20 mg 1X ONCE IVP Last administered on 06/20/18at 18:06; Start 06/20/18 at 17:45; Stop 06/20/18 at 17:46; Status DC Ondansetron HCl (Zofran) 4 mg 1X ONCE IV Last administered on 06/20/18at 18:06; Start 06/20/18 at 17:45; Stop 06/20/18 at 17:46; Status DC Sodium Chloride 1,000 ml @ 1,000 mls/hr 1X ONCE IV Last administered on 06/20/18at 18:05; Start 06/20/18 at 17:45; Stop 06/20/18 at 18:44; Status DC Iohexol (Omnipaque 300 Mg/ml) 75 ml 1X ONCE IV Last administered on 06/20/18at 19:00; Start 06/20/18 at 18:00; Stop 06/20/18 at 18:01; Status DC Info (CONTRAST GIVEN -- Rx MONITORING) 1 each PRN DAILY PRN MC SEE COMMENTS; Start 06/20/18 at 18:00; Stop 06/22/18 at 17:59; Status DC Ondansetron HCl (Zofran) 4 mg PRN Q8HRS PRN IV NAUSEA/VOMITING; Start 06/20/18 at 19:30; Stop 06/21/18 at 19:29; Status DC Fentanyl Citrate (Fentanyl 2ml Vial) 50 mcg PRN Q1HR PRN IV PAIN; Start 06/20/18 at 19:30; Stop 06/21/18 at 19:29; Status DC Sodium Chloride 1,000 ml @ 125 mls/hr 1X ONCE IV Last administered on 06/20/18at 19:40; Start 06/20/18 at 19:30; Stop 06/21/18 at 03:29; Status DC Ceftriaxone Sodium (Rocephin) 1 gm 1X ONCE IVP Last administered on 06/20/18at 19:38; Start 06/20/18 at 20:00; Stop 06/20/18 at 20:01; Status DC Ceftriaxone Sodium (Rocephin) 1 gm Q24H IVP Last administered on 06/23/18at 20:49; Start 06/21/18 at 20:00 Sodium Chloride 1,000 ml @ 100 mls/hr 1X ONCE IV Last administered on 06/20/18at 23:43; Start 06/20/18 at 21:00; Stop 06/21/18 at 06:59; Status DC Aspirin (Children'S Aspirin) 81 mg DAILY PO Last administered on 06/24/18at 09:47; Start 06/21/18 at 09:00 Losartan Potassium (Cozaar) 25 mg DAILY PO ; Start 06/21/18 at 09:00; Stop 06/21/18 at 09:00; Status DC Metoprolol Succinate (Toprol Xl) 25 mg DAILYWSUP PO ; Start 06/20/18 at 21:30; Stop 06/20/18 at 23:06; Status DC Ascorbic Acid (Vitamin C) 500 mg DAILY PO ; Start 06/21/18 at 09:00; Stop 06/21/18 at 09:00; Status DC Non-Formulary Medication (Selegiline Hcl ) 5 mg BID PO ; Start 06/20/18 at 21:00; Stop 06/20/18 at 23:06; Status DC Non-Formulary Medication (Ubidecarenone (Co Q-10)) 10 mg BID PO ; Start 06/20/18 at 21:00; Status UNV Non-Formulary Medication ([misce] ) 400 mg HS PO ; Start 06/20/18 at 21:00; Stop 06/20/18 at 23:06; Status DC Enoxaparin Sodium (Lovenox Per Pharmacy Prophylaxis Dosing) 1 each PRN DAILY PRN MC SEE COMMENTS; Start 06/20/18 at 22:00 Enoxaparin Sodium (Lovenox 40mg Syringe) 40 mg Q24H SQ Last administered on 06/22/18 21:02; Start 06/20/18 at 22:00 Losartan Potassium (Cozaar) 100 mg DAILY PO Last administered on 06/24/18 09:46; Start 06/21/18 at 09:00 Buspirone HCl (Buspar) 5 mg Q8HRS PO Last administered on 06/24/18 07:16; Start 06/21/18 at 00:00 Docusate Sodium (Colace) 100 mg PRN QHS PRN PO CONSTIPATION 1ST CHOICE; Start 06/20/18 at 23:15 Metoprolol Tartrate (Lopressor) 50 mg BID PO Last administered on 06/24/18 09:47; Start 06/21/18 at 00:00 Trazodone HCl (Desyrel) 50 mg QHS PO Last administered on 06/23/18 20:51; Start 06/21/18 at 00:00 Acetaminophen (Tylenol) 500 mg PRN Q4HRS PRN PO MILD PAIN / TEMP; Start 06/20/18 at 23:15 Bisacodyl (Dulcolax Supp) 10 mg PRN DAILY PRN [place] CONSTIPATION 2ND CHOICE; Start 06/20/18 at 23:15 Calcium Carbonate/ Glycine (Tums) 500 mg PRN Q4HRS PRN PO INDIGESTION; Start 06/20/18 at 23:15 Loperamide HCl (Imodium) 2 mg PRN Q2HRS PRN PO DIARRHEA; Start 06/20/18 at 23:15 Multi-Ingredient Ointment (Analgesic [place]) 1 myranda QID TP Last administered on 06/22/18 20:56; Start 06/21/18 at 00:00 Lactobacillus Rhamnosus (Culturelle) 1 cap BID PO Last administered on 06/24/18 09:45; Start 06/21/18 at 09:00 Sodium Chloride 1,000 ml @ 75 mls/hr [id number] IV Last administered on 06/24/18 04:30; Start 06/22/18 at 12:30 Potassium Chloride (Klor-Con) 40 meq 1X ONCE PO Last administered on 06/23/18at 13:34; Start 06/23/18 at 13:15; Stop 06/23/18 at 13:23; Status DC Potassium Chloride (Klor-Con) 20 meq DAILYWBKFT PO Last administered on 06/24/18at 09:44; Start 06/24/18 at 08:00 Active Scripts Active Reported Biofreeze (Menthol) 118 Ml Gel..ml. 118 Ml TP QID Trazodone Hcl 50 Mg Tablet 1 Tab PO QHS Buspirone Hcl 5 Mg Tablet 1 Tab PO Q8HRS Metoprolol Tartrate 50 Mg Tablet 1 Tab PO BID Imodium A-D (Loperamide HCl) 2 Mg Capsule 2 Mg PO Q2HR PRN Tums (Calcium Carbonate) 300 Mg Tab.chew 500 Mg PO Q4HRS PRN Bisacodyl 10 Mg Supp.rect 10 Mg RC PRN Q24HRS PRN Colace (Docusate Sodium) 100 Mg Capsule 1 Cap PO QHS PRN Tylenol Extra Strength (Acetaminophen) 500 Mg Tablet 500 Mg PO Q4HRS PRN Losartan Potassium (Losartan Potassium) 25 Mg Tablet 100 Mg PO DAILY Aspirin 81 Mg Tab.chew 1 Tab PO DAILY Vital Signs Vital Signs Date Time Temp Pulse Resp B/P (MAP) Pulse Ox O2 Delivery O2 Flow Rate FiO2 06/24/18 11:00 98.4 71 18 190/79 (116) 92 Room Air 98.4 Labs Laboratory Tests Test 06/23/18 04:40 06/24/18 04:15 White Blood Count 5.4 x10^3/uL (4.0-11.0) 6.0 x10^3/uL (4.0-11.0) Red Blood Count 3.52 x10^6/uL (3.50-5.40) 3.59 x10^6/uL (3.50-5.40) Hemoglobin 11.2 g/dL (12.0-15.5) 11.4 g/dL (12.0-15.5) Hematocrit 33.7 % (36.0-47.0) 34.4 % (36.0-47.0) Mean Corpuscular Volume 96 fL (79-100) 96 fL (79-100) Mean Corpuscular Hemoglobin 32 pg (25-35) 32 pg (25-35) Mean Corpuscular Hemoglobin Concent 33 g/dL (31-37) 33 g/dL (31-37) Red Cell Distribution Width 12.6 % (11.5-14.5) 12.6 % (11.5-14.5) Platelet Count 172 x10^3/uL (140-400) 183 x10^3/uL (140-400) Neutrophils (%) (Auto) 44 % (31-73) 42 % (31-73) Lymphocytes (%) (Auto) 41 % (24-48) 42 % (24-48) Monocytes (%) (Auto) 10 % (0-9) 10 % (0-9) Eosinophils (%) (Auto) 4 % (0-3) 5 % (0-3) Basophils (%) (Auto) 1 % (0-3) 1 % (0-3) Neutrophils # (Auto) 2.4 x10^3uL (1.8-7.7) 2.5 x10^3uL (1.8-7.7) Lymphocytes # (Auto) 2.2 x10^3/uL (1.0-4.8) 2.5 x10^3/uL (1.0-4.8) Monocytes # (Auto) 0.6 x10^3/uL (0.0-1.1) 0.6 x10^3/uL (0.0-1.1) Eosinophils # (Auto) 0.2 x10^3/uL (0.0-0.7) 0.3 x10^3/uL (0.0-0.7) Basophils # (Auto) 0.0 x10^3/uL (0.0-0.2) 0.0 x10^3/uL (0.0-0.2) Sodium Level 142 mmol/L (136-145) 142 mmol/L (136-145) Potassium Level 3.3 mmol/L (3.5-5.1) 3.4 mmol/L (3.5-5.1) Chloride Level 109 mmol/L (98-107) 108 mmol/L (98-107) Carbon Dioxide Level 25 mmol/L (21-32) 25 mmol/L (21-32) Anion Gap 8 (6-14) 9 (6-14) Blood Urea Nitrogen 8 mg/dL (7-20) 7 mg/dL (7-20) Creatinine 0.7 mg/dL (0.6-1.0) 0.6 mg/dL (0.6-1.0) Estimated GFR (Cockcroft-Gault) 80.5 96.2 Glucose Level 96 mg/dL (70-99) 94 mg/dL (70-99) Calcium Level 8.9 mg/dL (8.5-10.1) 9.0 mg/dL (8.5-10.1) Lipase 153 U/L (73-393) Laboratory Tests Test 06/24/18 04:15 White Blood Count 6.0 x10^3/uL (4.0-11.0) Red Blood Count 3.59 x10^6/uL (3.50-5.40) Hemoglobin 11.4 g/dL (12.0-15.5) Hematocrit 34.4 % (36.0-47.0) Mean Corpuscular Volume 96 fL (79-100) Mean Corpuscular Hemoglobin 32 pg (25-35) Mean Corpuscular Hemoglobin Concent 33 g/dL (31-37) Red Cell Distribution Width 12.6 % (11.5-14.5) Platelet Count 183 x10^3/uL (140-400) Neutrophils (%) (Auto) 42 % (31-73) Lymphocytes (%) (Auto) 42 % (24-48) Monocytes (%) (Auto) 10 % (0-9) Eosinophils (%) (Auto) 5 % (0-3) Basophils (%) (Auto) 1 % (0-3) Neutrophils # (Auto) 2.5 x10^3uL (1.8-7.7) Lymphocytes # (Auto) 2.5 x10^3/uL (1.0-4.8) Monocytes # (Auto) 0.6 x10^3/uL (0.0-1.1) Eosinophils # (Auto) 0.3 x10^3/uL (0.0-0.7) Basophils # (Auto) 0.0 x10^3/uL (0.0-0.2) Sodium Level 142 mmol/L (136-145) Potassium Level 3.4 mmol/L (3.5-5.1) Chloride Level 108 mmol/L (98-107) Carbon Dioxide Level 25 mmol/L (21-32) Anion Gap 9 (6-14) Blood Urea Nitrogen 7 mg/dL (7-20) Creatinine 0.6 mg/dL (0.6-1.0) Estimated GFR (Cockcroft-Gault) 96.2 Glucose Level 94 mg/dL (70-99) Calcium Level 9.0 mg/dL (8.5-10.1) Allergies Allergies Coded Allergies Type Severity Reaction Last Updated Verified Penicillins Allergy Intermediate RASH 02/28/17 Yes Disposition/Orders: D/C to Home w/ HH Patient Instructions D/C PLANNING 36 MIN KENYA NATARAJAN MD Jun 24, 2018 14:34
[2018-06-24] MEDS ORDERED: LACT1CAP19 PO (14:36)
[2018-06-24] MEDS ORDERED: CIPR250T30 PO (14:38)
--- NOTE | 2018-06-24 16:23 | SNU/HH DC ---
DISCHARGE WITH HOME HEALTH DISCHARGE INFORMATION: Final Diagnosis: Problems Medical Problems: (1) Acute pancreatitis Status: Acute (2) Hypertension Status: Acute Condition on Discharge: Stable CODE STATUS: Code Status: Full HOME HEALTH: Face to Face: I certify this patient is under my care and that I, or a nurse practitioner or physician's esol teacher assistant working with me, had a face to face encounter that meets the physician face to face encounter requirements with this patient on []. Medical Complications: HTN Correction For: Assess Cardiopulm Status, Assess/Skilled Observatio, Medication Management, Pain Management RN For Eval/Treatment: Yes Physical Therapy For: Evalulation/Treatment Occupational Therapy For: Evaluation/Treatment Speech Language Pathology For: Evaluation/Treatment Home Health Aide For: Self-care SCALE ADJUSTER For: Community Resources Pt Meets Homebound Status: Poor coordination w/ amb., Unsteady balance w/ amb, POST DISCHARGE ORDERS: Activity Instructions for Disc: Activity as tolerated Weight Bearing Status after Di: As tolerated Bathing Instructions: No Tub Bath until see DIET AFTER DISCHARGE: Cardiac Wound/Incision Care: Ice to area for comfort, Keep wound/cast CDI CHECKS AFTER DISCHARGE: Checks after discharge: Check blood press - daily TREATMENT/EQUIPMENT ORDERS: Adaptive Equipment Issued: None Discharge Respiratory Equipmen: Oxygen CERTIFICATION STATEMENT: Certification Statement: Certification Statement: Based on the above finding, I certify that this patient is confined to the home and needs intermittent half-way care, physical therapy and/or speech therapy, or continues to need occupational therapy.~ This patient is under my care, and I have initiated the establishment of the plan of care.~ This patient will be followed by myself or a community physician who will periodically review the plan of care. Home Meds Active Scripts Ciprofloxacin Hcl (CIPRO) 250 Mg Tablet, 1 TAB PO BID for UTI, #10 TAB Prov:KENYA NATARAJAN MD 06/24/18 Lactobacillus Rhamnosus Gg (CULTURELLE) 1 Each Cap.sprink, 1 CAP PO BID for GI SUPPLEMENT for 14 Days, #28 CAP Prov:KENYA NATARAJAN MD 06/24/18 Reported Medications Menthol (BIOFREEZE) 118 Ml Gel..ml., 118 ML TP QID for back pain, EACH 06/20/18 Trazodone Hcl (TRAZODONE HCL) 50 Mg Tablet, 1 TAB PO QHS for insomnia, #30 TAB 1 Refill 06/20/18 Buspirone Hcl (BUSPIRONE HCL) 5 Mg Tablet, 1 TAB PO Q8HRS for anxiety, #60 TAB 2 Refills 06/20/18 Metoprolol Tartrate (METOPROLOL TARTRATE) 50 Mg Tablet, 1 TAB PO BID for bp, #60 TAB 5 Refills 06/20/18 Loperamide HCl (Imodium A-D) 2 Mg Capsule, 2 MG PO Q2HR PRN for DIARRHEA, CAP 06/20/18 Calcium Carbonate (TUMS) 300 Mg Tab.chew, 500 MG PO Q4HRS PRN for INDIGESTION, TAB.CHEW 06/20/18 Bisacodyl (BISACODYL) 10 Mg Supp.rect, 10 MG RC PRN Q24HRS PRN for CONSTIPATION, SUPP.RECT 0 Refills 06/20/18 Docusate Sodium (COLACE) 100 Mg Capsule, 1 CAP PO QHS PRN for CONSTIPATION, #30 CAP 06/20/18 Acetaminophen (TYLENOL EXTRA STRENGTH) 500 Mg Tablet, 500 MG PO Q4HRS PRN for PAIN, TAB 06/20/18 Losartan Potassium (LOSARTAN POTASSIUM ) 25 Mg Tablet, 100 MG PO DAILY for bp, TAB 02/25/17 Aspirin (ASPIRIN) 81 Mg Tab.chew, 1 TAB PO DAILY, #30 TAB 3 Refills 02/25/17 KENYA NATARAJAN MD Jun 24, 2018 16:22
--- NOTE | 2018-06-24 16:24 | NUR ---
LEONIDAS following pt. Pt's family able to transport pt back to [facility]. Charo from the [facility] notified of plan and agreeable. Pt's daughter agreeable with [facility] will fax orders as soon as they are available in EMR. Physician notified. Addendum: 06/24/18 at 1628 by GISELA LAUREN Orders faxed to [facility]
== END 2018-06-24 15:37 | disposition home health service (06) | DRG 871 ==
LOC: ER 17:29 → 5 NORTH 19:03
PROVIDERS: ADMIT Internal Medicine; ATTEND Internal Medicine
DX: A41.9 Sepsis, unspecified organism (principal); K85.90 Acute pancreatitis without necrosis or infection, unspecified; N39.0 Urinary tract infection, site not specified; G93.40 Encephalopathy, unspecified; I10 Essential (primary) hypertension; F03.90 Unspecified dementia, unspecified severity, without behavioral disturbance, psychotic disturbance, mood disturbance, and anxiety; K86.89 Other specified diseases of pancreas; E87.6 Hypokalemia; B35.9 Dermatophytosis, unspecified; Z90.710 Acquired absence of both cervix and uterus; Z90.49 Acquired absence of other specified parts of digestive tract; Z88.0 Allergy status to penicillin; Z87.891 Personal history of nicotine dependence; Z79.82 Long term (current) use of aspirin
CPT/HCPCS: 36415; 71045; 74177; 76705; 80048; 80053; 81001; 83605; 83690; 83735; 83880; 84484; 85007; 85025; 87040; 87086; 87186; 87641; 93005; 96361; 96374; 96375; J0696; J1650; J2405; J3490; J7030; Q9967; 97530; 99285-25

== ENCOUNTER 2019-08-12 10:44 | Emergency (ER) | payer MEDICARE, OTHER ==
[~2019-08-12] VITALS: Ht 165.1 cm; Wt 59.0 kg
[~2019-08-12 10:44] MED LIST changes: +ACET500T33 PO; +BISA10SU4 RC; +BUSP5TAB PO; +CALC300T5 PO; +CIPR250T30 PO; +DOCU-109 PO; +LACT1CAP19 PO; +LOPE-101 PO; +MENT118G TP; +METO50TA6 PO; +MULT-445 PO; -MULT1TAB52 PO; +TRAZ-118 PO
[2019-08-12 11:16] LABS: BASO # 0.1 x10^3/uL (0.0-0.2); BASO % 1 % (0-3); EOS # 0.1 x10^3/uL (0.0-0.7); EOS % 2 % (0-3); HEMATOCRIT 39.9 % (36.0-47.0); HEMOGLOBIN 13.6 g/dL (12.0-15.5); LYMPH % 28 % (24-48); MEAN CORPUSCULAR HEMOGLOBIN 32 pg (25-35); MEAN CORPUSCULAR HGB CONC 34 g/dL (31-37); MEAN CORPUSCULAR VOLUME 95 fL (79-100); MONO # 0.7 x10^3/uL (0.0-1.1); MONO % 9 % (0-9); NEUT # 4.4 x10^3/uL (1.8-7.7); NEUT % 61 % (31-73); PLATELET COUNT 269 x10^3/uL (140-400); RED BLOOD COUNT 4.21 x10^6/uL (3.50-5.40); WHITE BLOOD COUNT 7.3 x10^3/uL (4.0-11.0)
--- NOTE | 2019-08-12 11:23 | RAD ---
EXAM: CT Head without IV contrast INDICATION: R sided weakness . Code stroke TECHNIQUE: Multi-detector row CT images were obtained of the head without the use of IV contrast. All CT scans performed at this facility utilize dose optimization techniques as appropriate to the exam, including the following: Automated exposure control and adjustment of the mA and/or KV according to patient size (this includes techniques or standardized protocols for targeted exams where dose is indication/reason for exam). COMPARISON: None FINDINGS: BRAIN PARENCHYMA: No evidence of acute intraparenchymal hemorrhage or infarct. No abnormal parenchymal density or mass. Brain parenchyma shows mild generalized volume loss. VENTRICLES & EXTRA-AXIAL SPACES: Ventricles are diffusely enlarged, borderline commensurate to the degree of parenchymal volume loss. Basilar cisterns are patent. No pathologic extra-axial fluid collection or mass. ORBITS: Orbital contents are unremarkable. SINUSES: Visualized paranasal sinuses and mastoid air cells are clear. OSSEOUS & SOFT TISSUES: Calvarium and skull base are intact. IMPRESSION: No acute intracranial hemorrhage, acute infarct or mass effect. Mild ventriculomegaly. FOR INTERNAL CODING PURPOSES Critical result: Findings discussed with RAUL ROSS at 08/12/2019 11:20 AM. RESULT CODE: (C) Electronically signed by: Bee Arboleda MD (08/12/2019 11:20 AM) [id number]
[2019-08-12 11:24] LABS: GFR 53.2; POTASSIUM 3.9 mmol/L (3.5-5.1)
[2019-08-12 11:29] LABS: ALBUMIN 3.5 g/dL (3.4-5.0); TOTAL BILIRUBIN 0.3 mg/dL (0.2-1.0); TOTAL PROTEIN 7.1 g/dL (6.4-8.2)
--- NOTE | 2019-08-12 11:32 | RAD ---
Single AP view of the chest. Comparison: 06/20/2018. Indication: Shortness of air, stroke Findings: The heart is not enlarged. There is no pneumothorax or effusion. No air space or interstitial disease. Impression: 1. No acute cardiopulmonary process. Electronically signed by: Holden Cheung MD (08/12/2019 11:29 AM) [id number]
[2019-08-12 11:56] LABS: BILIRUBIN,URINE NEGATIVE (NEG); CLARITY,URINE CLEAR; COLOR,URINE YELLOW; NITRITE,URINE POSITIVE (NEG); PROTEIN,URINE NEGATIVE (NEG-TRACE); UROBILINOGEN,URINE 0.2 mg/dL (0.2 mg/dL)
[2019-08-12 12:10] LABS: BACTERIA,URINE MANY /HPF (0-FEW); RBC,URINE 0 /HPF (0-2); WBC,URINE >40 /HPF (0-4)
[2019-08-12] MEDS ORDERED: CEPH-264 PO (12:38)
[2019-08-12 12:46] VITALS: BP 156/80
[2019-08-12] MEDS ORDERED: CEPHALEXIN 250 MG CAPSULE. PO SCH (13:00)
--- NOTE | 2019-08-12 13:30 | EKG ---
[facility] [address] [place] [address] Test Date: 2019-08-12 Test Time: 10:49:33 Pat Name: BENOIT VAZ Department: Room: Gender: F [employer]: : 1935 Requested By: RAUL ROSS Order Number: [id number] Reading MD: Mike Carballo MD Measurements Intervals [place] Rate: 67 P: 101 WI: 206 QRS: -23 QRSD: 84 T: 26 QT: 388 QTc: 413 Interpretive Statements SINUS RHYTHM INTERPOLATED ATRIAL PREMATURE COMPLEX(ES) LEFTWARD AXIS QRS(T) CONTOUR ABNORMALITY CONSIDER ANTEROSEPTAL MYOCARDIAL DAMAGE POSSIBLY ABNORMAL ECG Electronically Signed On 09-04-2019 9:42:48 CDT by Mike Carballo MD
--- NOTE | 2019-08-12 14:52 | PHYS DOC ---
Past Medical History Past Medical History: Dementia, Depression, Hypertension, Other Additional Past Medical Histor: ALZHEIMER'S Past Surgical History: Appendectomy, Hysterectomy Smoking Status: Former Smoker Alcohol Use: None Drug Use: None General Adult EDM: Chief Complaint: NEURO SYMPTOMS/DEFICITS HPI: HPI: Patient is a 83 year old female who presents with neurologic complaints. Patient has a history of dementia and history is limited due to this. According to EMS, during breakfast patient was witnessed to lose strength on the R side of her body and developed confusion with slurred speech. Patient states she does remember this happened and she started to feel "off" during breakfast. She is now feeling better. Her daughter states she does appear to be at her baseline other than mild weakness in her R leg. She has chronic weakness in both legs but typically can walk short distances. She feels her speech and mental state is back to normal. She doesn't typically know how old she is or what the date is due to her dementia. Review of Systems: Review of Systems: General: Denies fever, chills, sweats, fatigue Eyes: Denies drainage, blurred vision HENT: Denies rhinorrhea, sore throat Respiratory: Denies cough, shortness of breath, wheezing Cardiac: Denies edema, palpitations, chest pain GI: Denies abdominal pain, N/V MSK: Denies back pain, neck pain Skin: Denies rash, jaundice Neuro: Denies headache, dizziness Psychiatric: Denies SI/HI Heart Score: Risk Factors: Risk Factors: DM, Current or recent (<one month) smoker, HTN, HLP, family history of CAD, obesity. Risk Scores: Score 0 - 3: 2.5% MACE over next 6 weeks - Discharge Home Score 4 - 6: 20.3% MACE over next 6 weeks - Admit for Clinical Observation Score 7 - 10: 72.7% MACE over next 6 weeks - Early Invasive Strategies Current Medications: Current Medications Medications (Trade) Dose Ordered Sig/Drea Start Time Stop Time Status Last Admin Dose Admin Cephalexin HCl (Keflex) 500 mg 1X 08/12/19 13:00 08/12/19 13:24 DC 08/12/19 12:52 500 MG Allergies: Allergies: Allergies Coded Allergies Type Severity Reaction Last Updated Verified Penicillins Allergy Intermediate RASH 02/28/17 Yes Physical Exam: PE: Constitutional: Well developed, well nourished, Cooperative, NAD, non-toxic appearing HEENT: Normocephalic, atraumatic, oropharynx moist, EOMI, PERRL, no drainage from eyes, normal conjunctiva Neck: Supple, normal range of motion, no stridor Cardiovascular: RRR, 2+ radial pulses bilaterally, no edema Respiratory: CTA bilaterally, no respiratory distress, no wheezing/crackles Abdomen: Soft, nontender, nondistended, no masses Skin: Warm, dry, intact Extremities: No obvious deformities Neurologic: Alert and Oriented x2 cranial nerves II through XII intact, speech normal, 4 out of 5 strength in the left lower extremity, 3 out of 5 strength in right lower extremity, 5 out of 5 strength in bilateral upper extremity, intact sensation Psychologic: Normal affect, normal judgment, normal mood. No SI/HI Current Patient Data: Labs: Laboratory Tests Test 08/12/19 11:00 08/12/19 11:02 08/12/19 11:20 White Blood Count 7.3 x10^3/uL (4.0-11.0) Red Blood Count 4.21 x10^6/uL (3.50-5.40) Hemoglobin 13.6 g/dL (12.0-15.5) Hematocrit 39.9 % (36.0-47.0) Mean Corpuscular Volume 95 fL (79-100) Mean Corpuscular Hemoglobin 32 pg (25-35) Mean Corpuscular Hemoglobin Concent 34 g/dL (31-37) Red Cell Distribution Width 13.0 % (11.5-14.5) Platelet Count 269 x10^3/uL (140-400) Neutrophils (%) (Auto) 61 % (31-73) Lymphocytes (%) (Auto) 28 % (24-48) Monocytes (%) (Auto) 9 % (0-9) Eosinophils (%) (Auto) 2 % (0-3) Basophils (%) (Auto) 1 % (0-3) Neutrophils # (Auto) 4.4 x10^3/uL (1.8-7.7) Lymphocytes # (Auto) 2.0 x10^3/uL (1.0-4.8) Monocytes # (Auto) 0.7 x10^3/uL (0.0-1.1) Eosinophils # (Auto) 0.1 x10^3/uL (0.0-0.7) Basophils # (Auto) 0.1 x10^3/uL (0.0-0.2) Sodium Level 144 mmol/L (136-145) Potassium Level 3.9 mmol/L (3.5-5.1) Chloride Level 107 mmol/L (98-107) Carbon Dioxide Level 31 mmol/L (21-32) Anion Gap 6 (6-14) Blood Urea Nitrogen 13 mg/dL (7-20) Creatinine 1.0 mg/dL (0.6-1.0) Estimated GFR (Cockcroft-Gault) 53.2 BUN/Creatinine Ratio 13 (6-20) Glucose Level 93 mg/dL (70-99) Calcium Level 9.0 mg/dL (8.5-10.1) Total Bilirubin 0.3 mg/dL (0.2-1.0) Aspartate Amino Transferase (AST) 15 U/L (15-37) Alanine Aminotransferase (ALT) 16 U/L (14-59) Alkaline Phosphatase 99 U/L (46-116) Troponin I Quantitative < 0.017 ng/mL (0.000-0.055) Total Protein 7.1 g/dL (6.4-8.2) Albumin 3.5 g/dL (3.4-5.0) Albumin/Globulin Ratio 1.0 (1.0-1.7) Glucose (Fingerstick) 88 mg/dL (70-99) Urine Collection Type Unknown Urine Color Yellow Urine Clarity Clear Urine pH 6.0 (<5.0-8.0) Urine Specific [place] 1.020 (1.000-1.030) Urine Protein Negative mg/dL (NEG-TRACE) Urine Glucose (UA) Negative mg/dL (NEG) Urine Ketones (Stick) Negative mg/dL (NEG) Urine Blood Negative (NEG) Urine Nitrite Positive (NEG) Urine Bilirubin Negative (NEG) Urine Urobilinogen Dipstick 0.2 mg/dL (0.2 mg/dL) Urine Leukocyte Esterase Moderate (NEG) Urine RBC 0 /HPF (0-2) Urine WBC >40 /HPF (0-4) Urine Bacteria Many /HPF (0-FEW) Laboratory Tests 08/12/19 11:00 Laboratory Tests 08/12/19 11:00 Vital Signs: Vital Signs Date Time Temp Pulse Resp B/P (MAP) Pulse Ox O2 Delivery O2 Flow Rate FiO2 08/12/19 12:46 70 16 156/80 (105) 98 Room Air 08/12/19 10:44 98.3 98.3 EKG: EKG: [] Radiology/Procedures: Radiology/Procedures: [] Course & Med Decision Making: Course & Med Decision Making Pertinent Labs and Imaging studies reviewed. (See chart for details) Patient is an 83-year-old female who presents to the emergency room complaining of neurologic symptoms that have mostly resolved. Patient has mild R leg weakness, but is otherwise at her baseline according to her daughter. Code stroke was set off as she has continued leg weakness. CT head was negative. I have discussed the treatment options including TPA and IR intervention with clot retrieval with the daughter who is her D POA. Daughter states that at this time they do not want anything invasive. Patient is a DNR. They do not want TPA or IR intervention at this time. Patient likely would not be a candidate for either of these as well. While in the emergency room she returned completely to her baseline with no continued symptoms. This appears to have been a TIA. I have offered the family admission. Family would like her to go back to her living facility. They state with her dementia changes in her routine can be very difficult and emotionally distressing for her. I have discussed with them that after TIA patients have a high risk of having a stroke. Daughter states understanding and will discuss this with the nursing facility so they can keep a close eye on her. At this time I feel that it is safe for her to go back to her living facility as the family wishes. Patient's test results and vitals while in the ED were fully reviewed and discussed with the patient. Patient is stable and at this time does not need admission to the hospital. We have discussed strict return precautions and the importance of following up with their Primary Care Physician. Patient stated understanding and was given an opportunity to ask any questions. Edwar Disclaimer: Edwar Disclaimer: This electronic medical record was generated, in whole or in part, using a voice recognition dictation system. Departure Departure Impression: Primary Impression: TIA (transient ischemic attack) Additional Impression: UTI (urinary tract infection) Disposition: 01 HOME, SELF-CARE Condition: GOOD Patient Instructions: Urinary Tract Infection, Transient Ischemic Attack, [id number] Scripts Cephalexin (KEFLEX) 500 Mg Capsule 1 CAP PO Q12HR, #20 CAP Prov: RAUL ROSS MD 08/12/19 Justicifation of Admission Dx: Justifications for Admission: Justification of Admission Dx: No RAUL ROSS MD Aug 12, 2019 14:52
== END 2019-08-12 13:07 | disposition home or self-care (01) ==
LOC: ER 10:44
DX: G45.9 Transient cerebral ischemic attack, unspecified (principal); N39.0 Urinary tract infection, site not specified; I10 Essential (primary) hypertension; G30.9 Alzheimer's disease, unspecified; F02.80 Dementia in other diseases classified elsewhere, unspecified severity, without behavioral disturbance, psychotic disturbance, mood disturbance, and anxiety; F32.9 Major depressive disorder, single episode, unspecified; Z87.891 Personal history of nicotine dependence; Z88.0 Allergy status to penicillin
CPT/HCPCS: 36415; 70450; 71045; 80053; 81001; 82962; 84484; 85025; 93005; 99285